=== PATIENT | male | born 1940 | race Caucasian/White ===

== ENCOUNTER → 2018-05-04 10:49 | Outpatient (CLI) | payer BC, SELFPAY ==
--- NOTE | 2018-05-04 10:49 | RAD_ITS ---
STUDY: X-RAY CHEST REASON FOR EXAM: Male, 77 years old. Shortness of breath for 3 weeks. TECHNIQUE: PA and lateral views of the chest. COMPARISON: 05/31/2016. FINDINGS: There are slightly prominent markings appears to be chronic. No new infiltrate seen. There is no demonstrated pleural abnormality. Sternal cerclage wires and vascular clips are present from a prior sternotomy and coronary artery bypass graft procedure (CABG) new since the previous exam. Normal mediastinum and jose. Normal visualized pulmonary arteries. There is atherosclerotic tortuosity of the aortic arch and descending thoracic aorta. There are degenerative changes of the visualized thoracic spine. Normal visualized ribs, clavicles, and shoulders. There is no demonstrated abnormality of the visualized soft tissue structures of the upper abdomen. RAD/Chest PA and Lateral IMPRESSION: Status post CABG. No new infiltrate is seen. Electronically Signed: Kael Wheeler MD at 11:14 EST Tel , Service support ,
[2018-05-04 11:50] LABS: Absolute Lymphocyte Count 1.49 X10^3/ul (0.83-4.51); Absolute Neutrophil Count 3.9 X10^3/uL (2.0-7.7); Basophil# 0.02 X10^3/uL; Basophil% 0.3 % (0-1); Eosinophil# 0.23 X10^3/uL; Eosinophils% 3.7 % (0-5); Hematocrit 42.7 % (40-54); Hemoglobin 14.2 g/dl (13.0-16.5); Lymphocyte # 1.49 X10^3/ul (4.0); Mean Corp Hgb Conc 33.3 g/gl (32-36); Mean Corpuscular Hgb 26.9 pg (27.0-32.0); Mean Platelet Vol. 8.9 fl (6.2-12.0); Monocyte# 0.55 X10^3/uL; Monocyte% 8.9 % (0-10); Neutrophil # 3.91 X10^3/uL (2.7-7.7); Neutrophil % 62.9 % (47-70); Platelet Count 210 K/mm3 (150-450); RBC Distribution Width CV 14.9 % (11.6-14.6); RBC Distribution Width SD 43.1 fl (35.1-43.9); Red Blood Count 5.27 M/mm3 (4.6-6.2); White Blood Count 6.2 K/mm3 (4.4-11.0)
[2018-05-04 11:53] LABS: POSITIVE COUNT NO; POSITIVE DIFFERENTIAL NO; POSITIVE MORPHOLOGY NO
[2018-05-04 12:23] LABS: Anion Gap 7 (5-15); BUN 14 mg/dL (7-18); BUN/Creat Ratio 13.2 RATIO (10-20); Calcium,Total 9.7 mg/dL (8.5-10.1); Chloride 104 mmol/L (98-107); Creatinine, Serum 1.06 mg/dL (0.70-1.30); EST Glomerular Filtration Rate 72 mL/min (>60); Est Glom Filt Rate - Afr Amer 88 mL/min (>60); Glucose 97 mg/dL (74-106); Potassium 4.2 mmol/L (3.5-5.1); Sodium Level 137 mmol/L (136-145)
[2018-05-04 12:50] LABS: BNP,B-Type NATRIURETIC PEPTIDE 7.5 pg/mL (0-100)
== END ==
PROVIDERS: Family Provider Family Medicine; PCP Family Medicine; Referring Provider Nurse Practitioner Family; Visit Provider Nurse Practitioner Family
DX: R06.09 Other forms of dyspnea (principal); I10 Essential (primary) hypertension; Z95.1 Presence of aortocoronary bypass graft
CPT/HCPCS: 36415; 71046; 80048; 83880; 85025

== ENCOUNTER 2019-06-12 16:55 | Emergency (ER) | payer MEDICARE, SELFPAY ==
[2019-06-12 16:56] VITALS: BP 152/90; PULSE 97; RESP 15; TEMP 37; O2SAT 100; BMI 29.7
--- NOTE | 2019-06-12 17:27 | ED.DCSUM_ITS ---
History of Present Illness Chief Complaint: Complaint Detail of Chief Complaint: Hematuria, spasm, pain Informant: Patient, Family Onset: Today Context: Sudden Onset Timing: Continuous, Waxes and wanes Quality: Pain Location: Prepubic Current Severity: Mild Maximum Severity: Severe Worsened by: Nothing Relieved by: Nothing Associated Symptoms: Gross hematuria Narrative: Patient is an elderly male with history of hypertension, coronary artery disease, GERD, irritable bowel syndrome, mild pulmonary fibrosis and mixed hypercholesterolemia and hypertriglyceridemia. Patient presents because of gross hematuria and abnormal CAT scan that was performed at [facility]. There is an irregular enhancing lesion approximately 8 cm in the maximum dimension along the floor of the bladder. This raises concern for neoplasm. There is also a lobular enhancement of the the left lateral bladder wall. There was no adenopathy or free fluid. Patient presents because of severe waxing and waning colicky suprapubic/pelvic pain. Does admit to night sweats. He denies weight loss. Prior similar symptoms: No Recent Illness/Hospitalization: No - Past Medical History (1) Atherosclerotic heart disease of [place] coronary artery without angina pectoris Status: Chronic Comment: CABG X 3, MOLINA to LAD, SVG to Diag, SVG to OM1 (2) Essential hypertension Status: Chronic (3) CRISS (obstructive sleep apnea) Status: Chronic (4) Pulmonary fibrosis Status: Chronic (5) Pure hypercholesterolemia Status: Chronic (6) hisotry of left lung wedge resection Status: Resolved Past Medical History - Allergies and Home Meds Allergies/Adverse Reactions: Allergies atorvastatin [From Lipitor] Allergy (Verified 06/12/19 17:00) Unknown clarithromycin [From Biaxin] Allergy (Verified 06/12/19 17:00) Unknown Penicillins Allergy (Verified 06/12/19 17:00) Unknown Primary Care Physician: Merlin Pollack [Primary Care Provider] - Prior records reviewed: Yes Surgical History: - Lives: Alone Smoking Status: Never smoker Alcohol: None Drugs: None Review of Systems General: Reports: Sweats. Denies: Chills, Fever, Malaise, Subjective, Weight loss Eyes: Denies: Visual changes - bilaterally, Blurred Vision - bilaterally, Diplopia ENT: Denies: Bilateral ear pain, Rhinorrhea, Sore throat Cardiovascular: Denies: Chest pain, Palpitations Respiratory: Denies: Dyspnea, Cough, Dyspnea on exertion Gastrointestinal: Denies: Abdominal pain, Nausea, Vomiting, Diarrhea, Melena, Hematochezia Genitourinary: Reports: Hematuria, Frequency, - - Urgency Musculoskeletal: Denies: Myalgias, Arthralgias, Neck pain, Back pain, Swelling, Extremity Pain, -, - Skin: Denies: Rash, Wounds Neurological: Denies: Headache, Weakness, Numbness Hematologic: Denies: Easy bruising, Easy bleeding Allergy: Denies: Uticaria, Swelling of the mouth Physical Exam Vital Signs/Narrative: Vital Signs Temp Pulse Resp BP Pulse Ox 06/12/19 16:56 98.6 F 97 15 152/90 H 100 Inital Vital Signs reviewed: Yes General: Well nourished, Well developed, Acute Distress Head: Normocephalic, Atraumatic Eyes: Perrl, EOMI. Negative for: Pale conjunctiva ENT: Moist mucous membranes, No rhinorrhea Neck: Supple, Nontender, No lymphadenopathy, No JVD Cardiovascular: Regular rate, Regular rhythm, No murmurs, Normal S1, Normal S2 Respiratory: No distress, CTA bilaterally, Chest nontender Abdomen: Soft, Nondistended, Normal bowel sounds, No masses - Bladder is di stended., Tender, Guarding Rectal: Deferred : - - Blood noted at the meatus. Back: Nontender, Normal Inspection Extremities: Nontender, No edema Skin: Normal color, No rash Neurological: Alert, Oriented x3, Cranial nerves II-XII grossly intact, Normal Strength, Normal Sensation Psychological: Normal affect, Normal Mood Diagnostic/Tx/Re-eval Laboratory Results 06/12/19 06/12/19 06/12/19 17:40 17:52 17:52 WBC 13.9 H RBC 5.58 Hgb 13.6 Hct 42.5 MCV 76.2 L MCH 24.4 L MCHC 32.0 RDW Std Deviation 45.0 H RDW Coeff of Anabela 16.6 H Plt Count 232 MPV 9.1 Immature Gran % (Auto) 0.400 Neut % (Auto) 83.9 H Lymph % (Auto) 9.4 L [place] % (Auto) 5.2 Eos % (Auto) 0.7 Baso % (Auto) 0.4 Absolute Neuts (auto) 11.7 H Absolute Lymphs (auto) 1.31 Nucleated RBC % 0 PT 12.7 INR 1.0 APTT 30.3 Sodium Potassium Chloride Carbon Dioxide Anion Gap BUN Creatinine Estim Creat Clear Calc Est GFR (MDRD) Af Amer Est GFR (MDRD) Non-Af BUN/Creatinine Ratio Glucose Calcium Total Bilirubin AST ALT Alkaline Phosphatase Total Protein Albumin Globulin Albumin/Globulin Ratio Urine Color Red Urine Clarity Turbid Urine pH 7.0 Ur Specific [place] 1.010 Urine Protein 500 H Urine Glucose (UA) Normal Urine Ketones 5 H Urine Occult Blood 250 H Urine Nitrite Negative Urine Bilirubin Negative Urine Urobilinogen Normal Ur Leukocyte Esterase Negative Urine RBC > 100 SEEN Urine WBC 0 SEEN Ur Squamous Epith Cells 0 SEEN Urine Bacteria 0 SEEN Urine Mucus 0 SEEN 06/12/19 17:52 WBC RBC Hgb Hct MCV MCH MCHC RDW Std Deviation RDW Coeff of Anabela Plt Count MPV Immature Gran % (Auto) Neut % (Auto) Lymph % (Auto) [place] % (Auto) Eos % (Auto) Baso % (Auto) Absolute Neuts (auto) Absolute Lymphs (auto) Nucleated RBC % PT INR APTT Sodium 136 Potassium 4.2 Chloride 101 Carbon Dioxide 22.0 Anion Gap 13 BUN 16 Creatinine 1.41 H Estim Creat Clear Calc 40.22 Est GFR (MDRD) Af Amer 63 Est GFR (MDRD) Non-Af 52 L BUN/Creatinine Ratio 11.3 Glucose 151 H Calcium 9.9 Total Bilirubin 0.40 AST 30 ALT 38 Alkaline Phosphatase 78 Total Protein 8.6 H Albumin 4.2 Globulin 4.4 H Albumin/Globulin Ratio 1.0 Urine Color Urine Clarity Urine pH Ur Specific [place] Urine Protein Urine Glucose (UA) Urine Ketones Urine Occult Blood Urine Nitrite Urine Bilirubin Urine Urobilinogen Ur Leukocyte Esterase Urine RBC Urine WBC Ur Squamous Epith Cells Urine Bacteria Urine Mucus White count is slightly elevated. H&H is normal. Differential is unremarkable. Creatinine is elevated 1.41 with a GFR 52. Daughter states he is never been told this creatinine is elevated. Total protein is slightly elevated 8.6. Albumin is normal. - Medical Decision Making Suspect patient has urinary retention secondary to blood clots. Three-way [place] was placed. Appropriate blood work was obtained. Patient and family were made aware of CAT scan results and need urologist. He has never seen a urologist. They were informed there is no urologist available for the remainder of this month at [place]. He was placed. Large clots have been removed. Patient has gross blood after multiple liters of irrigation. He still has periodic spasms. I would be suppository was ordered. Since there is no urologist available for the remainder of the month at [place] and his studies were done at [facility] and his primary care physician is affiliated with [facility] transfer line was contacted for transfer for admission to urology. ED Disposition - Plan for ED Patient: Disposition: [facility] Diagnosis: Gross hematuria, Mass of urinary bladder, Acute renal insufficiency Referrals: Merlin Pollack [Primary Care Provider] -
[2019-06-12 17:59] LABS: Bacteria 0 SEEN /hpf (None Seen); Mucous, Urine 0 SEEN /hpf (<or=2+); Squamous Epithelial Cells - UA 0 SEEN /hpf (0-5)
[2019-06-12 18:02] LABS: Color, Urine Red (Yellow); Glucose, Dipstick Normal (Normal); Ketone-Dipstick 5 mg/dl (Negative); Leukocyte Esterase-Dipstick Negative /ul (Negative); Nitrite-Dipstick Negative (Negative); Occult Blood-Urine 250 /ul (Negative); Protein-Dipstick 500 mg/dl (Negative); Urine Bilirubin Dipstick Negative (Negative); Urine Clarity Turbid (Clear); Urine Urobilinogen Normal (Normal)
[2019-06-12 18:13] LABS: Absolute Lymphocyte Count 1.31 X10^3/uL (0.83-4.51); Absolute Neutrophil Count 11.7 X10^3/uL (2.0-7.7); Basophil# 0.05 X10^3/uL; Basophil% 0.4 % (0-1); Eosinophils% 0.7 % (0-5); Hematocrit 42.5 % (40-54); Hemoglobin 13.6 g/dL (13.0-16.5); Lymphocyte # 1.31 X10^3/ul (4.0); Lymphocyte % 9.4 % (19-41); Mean Corpuscular Hgb 24.4 pg (27.0-32.0); Mean Corpuscular Volume 76.2 fL (80-94); Mean Platelet Vol. 9.1 fl (6.2-12.0); Monocyte# 0.72 X10^3/uL; Monocyte% 5.2 % (0-10); NRBC Flagged by Analyzer 0 % (0-5); Neutrophil # 11.68 X10^3/uL (2.7-7.7); Neutrophil % 83.9 % (47-70); Platelet Count 232 K/mm3 (150-450); RBC Distribution Width CV 16.6 % (11.6-14.6); Red Blood Count 5.58 M/mm3 (4.6-6.2); White Blood Count 13.9 K/mm3 (4.4-11.0)
[2019-06-12 18:18] LABS: AST(SGOT) 30 U/L (15-37); Alanine Aminotransfer ALT/SGPT 38 U/L (16-61); Albumin, Serum 4.2 g/dL (3.2-5.0); Alkaline Phosphatase 78 U/L (45-117); Anion Gap 13 (5-15); BUN 16 mg/dL (7-18); BUN/Creat Ratio 11.3 RATIO (10-20); Calcium,Total 9.9 mg/dL (8.5-10.1); Chloride 101 mmol/L (98-107); Creatinine, Serum 1.41 mg/dL (0.70-1.30); EST Glomerular Filtration Rate 52 mL/min (>60); Est Glom Filt Rate - Afr Amer 63 mL/min (>60); Estimated Creatinine Clearance 40.22 ml/min; Globulin 4.4 g/dL (2.2-4.2); Glucose 151 mg/dL (74-106); Potassium 4.2 mmol/L (3.5-5.1); Protein, Total 8.6 g/dL (6.4-8.2); Prothrombin Time (Protime)PT. 12.7 SECONDS (11.7-14.9); Sodium Level 136 mmol/L (136-145)
[2019-06-12 18:19] LABS: Partial Thromboplast Time 30.3 Seconds (24.1-36.2)
[2019-06-12 18:32] LABS: Red Blood Cells-Urine > 100 SEEN /hpf (0-5); White Blood Cells 0 SEEN /hpf (0-5)
[2019-06-12 18:33] VITALS: BP 166/102; PULSE 97; RESP 29; O2SAT 100
[2019-06-12 19:12] VITALS: BP 171/92; PULSE 94; RESP 21; O2SAT 99
[2019-06-12 19:38] VITALS: BP 153/86; PULSE 96; RESP 18; O2SAT 98
[2019-06-12 20:02] VITALS: BP 153/86; PULSE 96; RESP 18; O2SAT 98
== END 2019-06-12 20:06 | disposition short-term general hospital (02) ==
PROVIDERS: Emergency Provider Emergency Medicine; Family Provider Family Medicine; PCP Family Medicine
DX: R31.0 Gross hematuria (principal); N32.89 Other specified disorders of bladder; N28.9 Disorder of kidney and ureter, unspecified; I10 Essential (primary) hypertension; I25.10 Atherosclerotic heart disease of native coronary artery without angina pectoris; K21.9 Gastro-esophageal reflux disease without esophagitis; K58.9 Irritable bowel syndrome, unspecified; J84.10 Pulmonary fibrosis, unspecified; E78.1 Pure hyperglyceridemia; E78.00 Pure hypercholesterolemia, unspecified; G47.33 Obstructive sleep apnea (adult) (pediatric); Z95.1 Presence of aortocoronary bypass graft; Z79.82 Long term (current) use of aspirin; Z79.899 Other long term (current) drug therapy
CPT/HCPCS: 51702; 80053; 81001; 85025; 85610; 85730; 99285; A4216

== ENCOUNTER → 2020-01-03 06:01 | Outpatient (CLI) | payer MEDICARE, SELFPAY ==
[2019-08-16 14:01] VITALS: BMI 30.1
--- NOTE | 2020-01-03 12:48 | STRESSREP_ITS ---
Stress Test Report Date: 01-03-2020 Procedure: Pharmacologic stress nuclear imaging study Indications: Chest pain; CAD; CABG Consent: Per the patient Procedure: The patient underwent pharmacologic (Regadenoson) evaluation with a peak heart rate of 100 beats per minute (69 %predicted maximal heart rate) and a peak blood pressure of 148/78 mmHg. The baseline ECG demonstrated normal sinus rhythm; low voltage QRS. The peak pharmacologic ECG demonstrated obvious ECG changes. There were no cardiac dysrhythmias pretest, during pharmacologic infusion, or recovery. There was no complaint of chest discomfort during pharmacologic infusion or recovery. The examination was discontinued secondary to completion of protocol. Impression: 1. Pharmacologic (Regadenoson) evaluation 2. Peak pharmacologic ECG with no obvious ECG changes. 3. There were no cardiac dysrhythmias pretest, during pharmacologic infusion, or recovery. 4. Nuclear images pending Myocardial perfusion imaging study: Technique: The patient was injected with 11.9 millicuries of technetium 99m Cardiolite and subsequently rest SPECT Cardiolite nuclear imaging was obtained in the horizontal long, vertical long, and short axis views. The patient underwent pharmacologic (Regadenoson) evaluation with a peak heart rate of 100 beats per minute (69 % percent predicted maximal heart rate) and a peak blood pressure of 148/78 mmHg. The patient was injected with 33.3 millicuries of technetium 99m Cardiolite and subsequently stress SPECT Cardiolite nuclear imaging was obtained in the horizontal long, vertical long, and short axis views. A gated Cardiolite study at peak stress was obtained. Interpretation: Rest and stress SPECT Cardiolite nuclear imaging status post realignment, normalization, and attenuation correction demonstrate at rest a small area of subtle diminished tracer uptake near the apical segments which appears to normalize following stress.. There is end systolic thickening and brightening. The gated Cardiolite study demonstrates myocardial thickening and inward wall motion. The reported LVEF is 70 %. Impression: 1. Rest and stress myocardial nuclear imaging demonstrate myocardial perfusion change appearing compatible shifting soft tissue attenuation/artifact being more prominent at rest as opposed to stress with no myocardial perfusion changes considered diagnostic for associated stress-induced myocardial ischemia. 2. The gated Cardiolite study reports an LVEF of 70 %. This note was generated with [email or web address] software. It may contain incorrect words, spelling, and punctuation that were not noted in checking the note before signing.
== END ==
PROVIDERS: PCP Family Medicine; Referring Provider Physician Assistant Medical; Visit Provider Physician Assistant Medical
DX: R07.9 Chest pain, unspecified (principal)
CPT/HCPCS: 78452; 93017; A9500; A4216; J2785

== ENCOUNTER 2021-02-19 13:24 | Observation (INO) | payer MEDICARE, SELFPAY ==
[2021-02-19] VITALS (13 sets, daily range): BP systolic 127–164; BP diastolic 75–92; PULSE 79–94; RESP 16–27; TEMP 36.6–37.8; O2SAT 91–99; BMI 30.7; BMI 30.4
--- NOTE | 2021-02-19 14:20 | EKG12_ITS ---
Test Reason : SOB Blood Pressure : / mmHG Vent. Rate : 078 BPM Atrial Rate : 078 BPM P-R Int : 156 ms QRS Dur : 084 ms QT Int : 374 ms P-R-T Axes : 020 -13 007 degrees QTc Int : 426 ms Normal sinus rhythm Normal ECG Confirmed by ROSA TREJO, VLAD ([id number]), greeting card editor MARKELL BETTS ([id number]) on 02/22/2021 12:48:03 PM Referred By: DR TOLENTINO Confirmed By:VLAD LEE MD
--- NOTE | 2021-02-19 14:27 | ED.VIS.DYS ---
HPI History of Present Illness Chief Complaint: Shortness of Breath Informant: patient Onset/Context/Timing Onset: Days Context: gradual Timing: Continuous Quality: Positive for Dyspnea on exertion Current Severity: Mild Maximum Severity: Mild Worsened by: Exertion Relieved by: Nothing Associated Symptoms cough and white sputum Chest Pain: Positive for None Narrative Narrative: 80-year-old male history of pulmonary fibrosis but not on home O2. His daughter is a respiratory therapist here to the hospital. He has had a prior triple-vessel CABG and recent diagnosis of bladder cancer. States has been short of breath last several days with a cough of white phlegm. No fever. No chest pain. No hemoptysis. His pulse ox at home was 86% on room air at home. Patient did get a Covid vaccination x2. PE Risk Factors: Positive for Recent surgery; Negative for Cancer, OCP + Smoking + > 35, Prior DVT or PE, Recent immobilization and Recent travel Prior similar symptoms: No Recent Illness/Hospitalization: No PFSH PFSH Medical History Atherosclerotic heart disease of [place] coronary artery without angina pectoris BiPAP (biphasic positive airway pressure) dependence Bladder cancer Essential hypertension Fatigue Hyperlipidemia Hypertension Pulmonary fibrosis Pure hypercholesterolemia Sleep apnea Home Medications aspirin 81 mg PO DAILY 06/06/16 [History Last Taken 06/15/16] omeprazole 20 mg PO DAILY 06/06/16 [History Last Taken 06/15/16] nitroglycerin 0.4 mg sublingual tablet 0.4 mg SUBLINGUAL Q5M PRN #25 tab 10/11/17 [Rx Last Taken Unknown] rosuvastatin 20 mg tablet 10 mg PO QODAY tab 10/11/17 [History Last Taken Unknown] amlodipine 5 mg tablet 5 mg PO QDAY #90 tab 08/13/20 [Rx Last Taken Unknown] metoprolol tartrate 25 mg tablet 25 mg PO BID tab 08/13/20 [History Last Taken Unknown] montelukast 10 mg tablet 10 mg PO QHS 08/13/20 [History Last Taken Unknown] Allergy/AdvReac Type Severity Reaction Status Date / Time atorvastatin [From Lipitor] Allergy Unknown Verified 02/19/21 13:26 clarithromycin [From Biaxin] Allergy Unknown Verified 02/19/21 13:26 Penicillins Allergy Unknown Verified 02/19/21 13:26 Family History Mother Colon cancer Sister Colon cancer Father CAD (coronary artery disease) Diabetes COPD (chronic obstructive pulmonary disease) Hypertension Sudden cardiac Brother CAD (coronary artery disease) Surgical History 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) History of gastrectomy History of tonsillectomy Social History Smoking Status: Former smoker alcohol intake: never substance use type: does not use caffeine: Yes Type: coffee Number of servings: 1 what type of physical activity do you participate in: none seatbelt use: always do you feel safe at home: Yes ROS ROS ED ROS Narrative Cough and shortness of breath. Review of Systems ROS Unobtainable: Denies due to encephalopathy Constitutional Constitutional ED: Denies chills or fever(s) Eyes Eyes: Denies change in vision ENT ENT ED: Denies ear pain or sore throat Cardiovascular Cardiovascular: Denies chest pain or palpitations Respiratory/Chest Respiratory/Chest: Reports cough, dyspnea, dyspnea on exertion and sputum Gastrointestinal Gastrointestinal: Denies abdominal pain, diarrhea, nausea or vomiting Genitourinary Genitourinary ED: Denies dysuria Musculoskeletal Musculoskeletal: Denies myalgias Integumentary Denies rash Neurologic Neurologic: Denies headache(s) Psychiatric Psychiatric: Denies depression Endocrine Endocrinology: Denies polyuria Hematologic/Lymphatic Hematologic/Lymphatic: Denies easy bruising Allergic/Immunologic Allergic/Immunologic ED: Denies urticaria EXAM Physical Exam Narrative Exam Narrative: Older male no distress on oxygen his sats in the mid 90s. H EENT exam unremarkable. Neck nontender no JVD no lymphadenopathy. Lungs few scattered crackles. Daughter states that is baseline. Heart regular rate and rhythm no murmur rate about 80. Abdomen soft nontender. Normal bowel sounds no peritoneal signs. Extremities moves all 4. Calves nontender without edema or cords. Neurologically awake alert with no focal motor deficits. Const Vital Signs: 02/19/21 13:25 02/19/21 14:07 02/19/21 16:21 Temperature 97.8 F Temperature Source Temporal Pulse Rate 85 79 79 Respiratory Rate 22 H 27 H 23 H Respiratory Effort Short of Breath Respiratory Depth Shallow Respiratory Pattern Irregular Blood Pressure 164/89 H 134/75 H 141/81 H Blood Pressure Mean 114 94 101 Pulse Ox 95 96 94 Oxygen Delivery Method Room Air Nasal Cannula Nasal Cannula Oxygen Flow Rate (L/min) 2 2 Positive well nourished and well developed; Negative for obese, cachectic, contractures or unkempt General Appearance ED: well developed and NAD; Negative for unkempt, cachectic or contractures Nutritional Appearance: Negative for cachectic or obese HEENT Reports moist mucous membranes atraumatic; Negative for trauma or tenderness Eyes PERRL and EOMs intact bilaterally Neck no lymphadenopathy, supple, no meningeal signs and no JVD General: Negative for tenderness Resp normal respiratory effort and No clear to auscultation bilaterally Auscultation: rales Cardio regular rate, regular rhythm, S1 normal heart sound, S2 normal heart sound and no murmurs GI non-tender, non-distended and no masses Auscultation: normoactive bowel sounds Palpation: soft; Negative for tender, guarding or rebound tenderness present Back/Spine no CVA tenderness and normal to inspection General Back: Negative for CVA tenderness or tenderness Extremity normal to inspection General Extremety ED: Negative for edema or tenderness General Extremity: Negative for edema Neuro oriented x3 and CN's II-XII intact bilaterally Sensorium / Orientation: alert, oriented to person, oriented to place, oriented to time and orientation impaired; Negative for confused, lethargic or stuporous Motor Exam: strength 5/5 throughout Psych Appearance: Negative for unkempt Skin no wounds Lesions: no lesions Rashes: no rashes MDM MDM MDM Narrative Medical decision making narrative: Older male hypoxic with a cough and history of pulmonary fibrosis. Rule out pneumonia versus Covid versus other etiologies. Repeat exam is doing well at 4:56 PM. He and his daughter and I discussed his test results. I am obtaining a CTA of his chest in light that we will have a good diagnosis that is causing his hypoxia. I am not overwhelmed at that this is congestive heart failure and a BNP pending. He will be checked out to the oncoming physician and he will check the CTA and BNP results and make a disposition. Lab Data Attestation: I reviewed the patient's lab results. Lab results narrative: CBC shows a white count 6.5. Hemoglobin 12.7. Electrolytes unremarkable gap of 5. Creatinine of 1. Troponin IV. Chest x-ray chronic changes. Radiologist's reading is CHF this could all be secondary to his pulmonary fibrosis are not so this is CHF. Labs: Laboratory Results - last 24 hr 02/19/21 02/19/21 14:59 14:59 WBC 6.5 RBC 4.66 Hgb 12.7 L Hct 39.6 L MCV 85.0 MCH 27.3 MCHC 32.1 RDW Std Deviation 42.4 RDW Coeff of Anabela 13.6 Plt Count 244 MPV 8.9 Immature Gran % (Auto) 0.300 Neut % (Auto) 68.3 Lymph % (Auto) 17.4 L [place] % (Auto) 8.6 Eos % (Auto) 5.1 H Baso % (Auto) 0.3 Absolute Neuts (auto) 4.4 Absolute Lymphs (auto) 1.13 Nucleated RBC % 0 Differential Comment SCANNED Sodium 134 L Potassium 4.2 Chloride 102 Carbon Dioxide 27.0 Anion Gap 5 BUN 13 Creatinine 1.08 Estim Creat Clear Calc 47.20 Est GFR (MDRD) Af Amer 85 Est GFR (MDRD) Non-Af 70 BUN/Creatinine Ratio 12.0 Glucose 105 Calcium 9.6 Troponin I High Sens 4 Radiography Chest X-Ray - ED: 1 View, Read by ED Physician, Read by Radiologist, Heart, Lungs, Mediastinum, Bony Structures, No Acute Disease and Chronic Changes Diagnostic Testing: Radiology Impression Chest X-Ray 02/19/21 14:28 IMPRESSION: Findings suggestive of a mild degree of CHF superimposed on scarring. Electronically Signed: Fahad Majano MD at 15:17 EDT , Service support , Portable 1 view chest x-ray entered by myself and radiologist. This may all be chronic changes of pulmonary fibrosis personally are not convinced as of yet that this is CHF that the radiologist read it as. Rhythm Strip Rhythm Strip: Sinus Rhythm Rate: 78 Ectopy: None EKG Initial EKG: Attestation: I personally reviewed and interpreted this EKG as follows: Interpretation: Sinus Rhythm Comments: Normal sinus rhythm rate of 79 no acute signs of DC nor ischemia. Discharge Plan Dx/Rx/DC Orders Clinical Impression: Acute dyspnea, Pulmonary fibrosis, Hypoxia Disposition Disposition: Acute Care Hospital [facility]
--- NOTE | 2021-02-19 14:28 | RAD_ITS ---
STUDY: X-RAY CHEST REASON FOR EXAM: Male, 80 years old. Dyspnea TECHNIQUE: Single AP portable view of the chest. COMPARISON: Comparison is made with prior study dated 05/04/2018. FINDINGS: EKG electrodes are seen. Mild degree of increased markings in both lungs with areas of confluence in the upper and lower lobes. This is suggestive of a mild degree of CHF superimposed on scarring. There is no demonstrated pleural abnormality. Sternal cerclage wires and vascular clips are present from a prior sternotomy and coronary artery bypass graft procedure (CABG). Normal mediastinum and jose. Normal visualized pulmonary arteries. Normal visualized aortic arch and descending thoracic aorta. There are diffuse degenerative changes of the visualized thoracic spine. Normal visualized ribs, clavicles, and shoulders. There is no demonstrated abnormality of the visualized soft tissue structures of the upper abdomen. RAD/Chest 1 View (Portable) IMPRESSION: Findings suggestive of a mild degree of CHF superimposed on scarring. Electronically Signed: Fahad Majano MD at 15:17 EDT , Service support ,
[2021-02-19 15:19] LABS: Absolute Lymphocyte Count 1.13 X10^3/uL (0.83-4.51); Absolute Neutrophil Count 4.4 X10^3/uL (2.0-7.7); Basophil# 0.02 X10^3/uL; Basophil% 0.3 % (0-1); Eosinophil# 0.33 X10^3/uL; Eosinophils% 5.1 % (0-5); Hematocrit 39.6 % (40-54); Hemoglobin 12.7 g/dL (13.0-16.5); Lymphocyte # 1.13 X10^3/ul (0.83-4.51); Lymphocyte % 17.4 % (19-41); Mean Corp Hgb Conc 32.1 g/dL (32-36); Mean Corpuscular Hgb 27.3 pg (27.0-32.0); Mean Platelet Vol. 8.9 fl (6.2-12.0); Monocyte# 0.56 X10^3/uL; Monocyte% 8.6 % (0-10); NRBC Flagged by Analyzer 0 % (0-5); Neutrophil # 4.44 X10^3/uL (2.7-7.7); Neutrophil % 68.3 % (47-70); POSITIVE COUNT YES; Platelet Count 244 K/mm3 (150-450); RBC Distribution Width CV 13.6 % (11.6-14.6); RBC Distribution Width SD 42.4 fl (35.1-43.9); Red Blood Count 4.66 M/mm3 (4.6-6.2); White Blood Count 6.5 K/mm3 (4.4-11.0)
[2021-02-19 15:40] LABS: Anion Gap 5 (5-15); BUN 13 mg/dL (7-18); Calcium,Total 9.6 mg/dL (8.5-10.1); Chloride 102 mmol/L (98-107); Creatinine, Serum 1.08 mg/dL (0.70-1.30); EST Glomerular Filtration Rate 70 mL/min (>60); Est Glom Filt Rate - Afr Amer 85 mL/min (>60); Glucose 105 mg/dL (74-106); Potassium 4.2 mmol/L (3.5-5.1); Sodium Level 134 mmol/L (136-145); Troponin-I HS 4 pg/mL (3.0-78.0)
[2021-02-19 15:45] LABS: Differential Comment SCANNED; Differential Indicated SCAN CRITERIA MET
--- NOTE | 2021-02-19 16:40 | CT_ITS ---
STUDY: CTA CHEST REASON FOR EXAM: Male, 80 years old. hypoxia RADIATION DOSAGE (If Supplied By Facility): CTDIvol = ( 12.83 ) mGy, DLP = ( 430.26 ) mGycm TECHNIQUE: The examination was performed with the intravenous administration of IV 100mL [id number]-370. Post-processing of the angiographic images was performed, with multiplanar reformation and 3D reconstruction. Individualized dose optimization techniques were used for this CT. COMPARISON: None. FINDINGS: Normal enhancement of the main pulmonary artery and right and left pulmonary arteries. Normal enhancement of the bilateral peripheral pulmonary arteries. There is no demonstrated pulmonary embolism. Normal thoracic aorta and visualized great vessels. There is no demonstrated aortic dissection. Normal heart and pericardium. There are calcifications of the coronary arteries. Normal mediastinum. Normal hilar regions. Normal visualized trachea and bronchi. The lungs are hyper expanded, with flattening of the hemidiaphragms. Widespread severe findings fibrotic changes throughout both lungs including end-stage honeycombing in the lung bases. Normal pleura. No effusions. Normal chest wall structures. There are degenerative changes of thoracic spine. Normal visualized upper abdomen. CT/CTA Chest W/WO Contrast IMPRESSION: Normal CTA chest examination, without a demonstrated pulmonary embolism or arterial dissection. Severe fibrotic COPD and no definite acute chest disease. Electronically Signed: Andrés Marroquin MD at 17:42 EDT , Service support ,
--- NOTE | 2021-02-19 17:19 | ED.RN ---
no sirs. sepsis screen cancel per ed dr. long dumont. [id number]
[2021-02-19 17:30] LABS: BNP,B-Type NATRIURETIC PEPTIDE 9.8 pg/mL (0-100)
--- NOTE | 2021-02-19 19:33 | PCM.HP.STD ---
HPI - General General Date of Admission: 02/19/21 Date of Service: 02/19/21 Chief Complaint: Shortness of breath times several days HPI Narrative TOYA ROMERO, is a 80 M who presents to the emergency room at [facility] with a chief complaint of shortness of breath-chiefly on exertion times several days. Patient has a history of pulmonary fibrosis but is not on oxygen at home. 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 Patient does have obstructive sleep apnea and history of coronary artery disease. CT of the chest was performed in the ER which showed changes consistent with pulmonary fibrosis, patient had a COVID-19 test that was negative. Patient's white blood cell count was normal, he was afebrile. Patient's pulse ox on room air was in the 90s, when he ambulated on room air, his pulse ox went down to 86%. Patient denies any fever or chills at home, he denies any change in his sputum-his sputum is white. Patient will be placed in observation status for hypoxia secondary to pulmonary fibrosis, I will place him on oral steroids and have pulmonary medicine see him in consultation. He will need to be set up for oxygen at home. [facility] Medical History Atherosclerotic heart disease of [place] coronary artery without angina pectoris BiPAP (biphasic positive airway pressure) dependence Bladder cancer Essential hypertension Fatigue Hyperlipidemia Hypertension Pulmonary fibrosis Pure hypercholesterolemia Sleep apnea Home Medications aspirin 81 mg PO DAILY 06/06/16 [History Last Taken 02/19/21] omeprazole 20 mg PO DAILY 06/06/16 [History Last Taken 02/19/21] nitroglycerin 0.4 mg sublingual tablet 0.4 mg SUBLINGUAL Q5M PRN #25 tab 10/11/17 [Rx Last Taken Unknown] metoprolol tartrate 25 mg tablet 25 mg PO BID tab 08/13/20 [History Last Taken 02/19/21] montelukast 10 mg tablet 10 mg PO QHS 08/13/20 [History Last Taken 02/18/21] amlodipine 5 mg PO DAILY 02/19/21 [History Last Taken 02/19/21] cefuroxime axetil 500 mg PO BID 02/19/21 [History Last Taken 02/19/21] docusate sodium 200 mg PO DAILY 02/19/21 [History Last Taken 02/18/21] rosuvastatin 10 mg PO QODAY 02/19/21 [History Last Taken 02/17/21] Allergy/AdvReac Type Severity Reaction Status Date / Time atorvastatin [From Lipitor] Allergy Unknown Verified 02/19/21 13:26 clarithromycin [From Biaxin] Allergy Unknown Verified 02/19/21 13:26 Penicillins Allergy Unknown Verified 02/19/21 13:26 Family History Mother Colon cancer Sister Colon cancer Father CAD (coronary artery disease) Diabetes COPD (chronic obstructive pulmonary disease) Hypertension Sudden cardiac Brother CAD (coronary artery disease) Surgical History 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) History of gastrectomy History of tonsillectomy Social History Smoking Status: Former smoker alcohol intake: never substance use type: does not use caffeine: Yes Type: coffee Number of servings: 1 what type of physical activity do you participate in: none seatbelt use: always do you feel safe at home: Yes ROS Constitutional Constitutional: Denies anorexia, change in weight, chills, fever(s), night sweats or weakness Eyes Eyes: Denies blurry vision, change in eye color, change in vision, discharge from eye(s) or eye pain ENT HEENT: Denies abnormal hearing, dysphagia or ear pain Cardiovascular Cardiovascular: Reports dyspnea on exertion; Denies chest pain, claudication, edema, lightheadedness, orthopnea or palpitations Respiratory/Chest Respiratory/Chest: Reports dyspnea; Denies cough, excessive phlegm production, hemoptysis, shortness of breath at rest or shortness of breath with exertion Gastrointestinal Gastrointestinal: Denies abdominal pain, coffee ground emesis, constipation, diarrhea, hematemesis, hematochezia, melena, nausea or vomiting Genitourinary Genitourinary: Denies burning urination, dysuria, hematuria, urinary frequency, urinary hesitancy, urinary incontinence or urinary urgency Musculoskeletal Musculoskeletal: Denies back pain, joint pain, joint stiffness, joint swelling, myalgias or neck pain Neurologic Neurologic: Denies abnormal gait, abnormal speech, dizziness, focal weakness, headache(s), loss of vision, numbness, other visual disturbances, paresthesias, syncope or tingling Psychiatric Psychiatric: Denies anxiety, cognitive impairment, depression, irritability, mood swings or suicidal ideation Endocrine Endocrinology: Denies change in body appearance, cold intolerance, excessive sweating, heat intolerance, polydipsia or polyuria Hematologic/Lymphatic Hematologic/Lymphatic: Denies none, anemia, easy bleeding, easy bruising or lymphadenopathy Allergic/Immunologic Allergic/Immunologic: Denies rhinitis, urticaria, eczemia or asthma Vital Signs Vital Signs Vital Signs: 02/19/21 13:25 02/19/21 14:07 02/19/21 16:21 Temperature 97.8 F Temperature Source Temporal Pulse Rate 85 79 79 Respiratory Rate 22 H 27 H 23 H Respiratory Effort Short of Breath Respiratory Depth Shallow Respiratory Pattern Irregular Blood Pressure 164/89 H 134/75 H 141/81 H Blood Pressure Mean 114 94 101 Pulse Ox 95 96 94 Oxygen Delivery Method Room Air Nasal Cannula Nasal Cannula Oxygen Flow Rate (L/min) 2 2 02/19/21 17:07 02/19/21 18:07 02/19/21 19:10 Temperature Temperature Source Pulse Rate 84 91 94 Respiratory Rate 16 27 H 25 H Respiratory Effort Respiratory Depth Respiratory Pattern Blood Pressure 147/92 H 139/81 H 139/81 H Blood Pressure Mean 110 100 100 Pulse Ox 99 96 96 Oxygen Delivery Method Room Air Room Air Oxygen Flow Rate (L/min) 2 Weight Weight: 81.1 kg Body Mass Index (BMI) 30.7 Physical Exam Const alert, oriented x3, no apparent distress and healthy appearing General Appearance: cooperative, well kempt and well developed Orientation / Consciousness: awake, oriented to person, oriented to place and oriented to time HEENT normocephalic, head/scalp atraumatic, hearing grossly normal bilaterally and moist oral mucous membranes Eyes PERRL, EOMs intact bilaterally and conjunctivae normal Neck nuchal rigidity, supple, no JVD, thyroid normal and no carotid bruits General: trachea midline Resp normal respiratory effort, no retractions and no use of accessory muscles Resp Narrative: There are bilateral inspiratory crackles/rales over all lung [place] bilaterally Auscultation: crackles bilateral and diffuse Cardio regular rate, regular rhythm, S1 normal heart sound, S2 normal heart sound, no murmurs, no rub, no gallops and no clicks GI normal to inspection, nondistended, normoactive bowel sounds, soft to palpation, non-tender and non-distended Extremity no clubbing, cyanosis or edema Skin no rashes or lesions noted, no wounds and skin turgor normal General Skin Exam: no breakdown Neuro oriented x3, CN's II-XII intact bilaterally, no focal motor deficits and no sensory deficits noted Sensorium / Orientation: awake and alert Speech: speech normal Motor Exam: strength 5/5 throughout Psych thought process normal and affect normal Results Lab / Micro Data Result Diagrams: 02/19/21 14:59 02/19/21 14:59 Labs: Laboratory Results - last 24 hr 02/19/21 14:59: WBC 6.5, RBC 4.66, Hgb 12.7 L, Hct 39.6 L, MCV 85.0, MCH 27.3, MCHC 32.1, RDW Std Deviation 42.4, RDW Coeff of Anabela 13.6, Plt Count 244, MPV 8.9, Immature Gran % (Auto) 0.300, Neut % (Auto) 68.3, Lymph % (Auto) 17.4 L, [place] % (Auto) 8.6, Eos % (Auto) 5.1 H, Baso % (Auto) 0.3, Absolute Neuts (auto) 4.4, Absolute Lymphs (auto) 1.13, Nucleated RBC % 0, Differential Comment SCANNED 02/19/21 14:59: Sodium 134 L, Potassium 4.2, Chloride 102, Carbon Dioxide 27.0, Anion Gap 5, BUN 13, Creatinine 1.08, Estim Creat Clear Calc 47.20, Est GFR (MDRD) Af Amer 85, Est GFR (MDRD) Non-Af 70, BUN/Creatinine Ratio 12.0, Glucose 105, Calcium 9.6, Troponin I High Sens 4 02/19/21 14:59: B-Natriuretic Peptide 9.8 Micro: Microbiology 02/19/21 14:59 Nasal Secretion SARS-CoV-2 Antigen (Rapid) - Final Rhythm Strip Rhythm Strip: Sinus Rhythm Rate: 78 Ectopy: None Radiology Impression Chest X-Ray 02/19/21 14:28 IMPRESSION: Findings suggestive of a mild degree of CHF superimposed on scarring. Electronically Signed: Fahad Majano MD at 15:17 EDT , Service support , Chest CTA 02/19/21 16:40 IMPRESSION: Normal CTA chest examination, without a demonstrated pulmonary embolism or arterial dissection. Severe fibrotic COPD and no definite acute chest disease. Electronically Signed: Andrés Marroquin MD at 17:42 EDT , Service support , Assessment & Plan Assessment/Plan (1) Hypoxia: PLAN: 1. Hypoxia-secondary to advanced pulmonary fibrosis, I explained to the patient that he would need to be set up for home oxygen and then we would place him in observation status on MedSurg, I have decided to place him on prednisone and have pulmonary medicine see him, I do not feel he needs aerosol treatments there is no wheezing, I do not think he needs antibiotics-he is not running a temperature and his white count is normal he has no change in his sputum color or consistency. 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 #5 essential hypertension #6 hyperlipidemia Charges/Coding Visit Charges OBSV E&M: 89767 Initial observation care L3
--- NOTE | 2021-02-19 19:50 | ECHOD_ITS ---
Reason For Study: Dyspnea/SOB Procedure This was a 2D Doppler, Color Flow transthoracic echocardiogram. Exam performed portable in patient room. Left Ventricle Normal LV size. Left ventricular systolic function is normal. The estimated ejection fraction is 60 %. Stage 1 diastolic dysfunction. No regional wall motion abnormalities noted. Right Ventricle Normal RV size. Normal systolic function. Atria Normal left atrium. Normal right atrium. Mitral Valve Normal mitral valve. Tricuspid Valve Normal tricuspid valve. Aortic Valve Trisinus/trileaflet aortic valve. Mild focal aortic valve calcification. Pulmonic Valve Normal pulmonic valve. Great Vessels Normal aortic root. Pericardium/Pleural No pericardial effusion. MMode/2D Measurements & Calculations LVIDd: 4.3 cm IVSd: 1.1 cm Ao root diam: 3.6 cm LVIDs: 2.7 cm LVPWd: 1.3 cm RVDd: 3.8 cm FS: 38.2 % LAV(MOD-bp): 26.1 ml LVAd ap4: 19.8 cm2 SV(MOD-sp4): 30.8 ml LAV(MOD-bp) Indexed: 14.1 ml/m2 LVLd ap4: 7.3 cm LAV(MOD-sp2): 27.3 ml EDV(MOD-sp4): 45.7 ml LAV(MOD-sp4): 23.8 ml EDV(sp4-el): 46.0 ml LVAs ap4: 10.2 cm2 LVLs ap4: 6.3 cm ESV(MOD-sp4): 14.9 ml ESV(sp4-el): 14.0 ml EF(MOD-sp4): 67.4 % EF(sp4-el): 69.5 % SV(sp4-el): 32.0 ml LA A4 area: 11.3 cm2 LA dimension(2D): 4.1 cm RA A4 area: 9.7 cm2 Doppler Measurements & Calculations MV E max tommy: 59.3 cm/sec Lat Peak E' Tommy: 5.9 cm/sec Med Peak E' Tommy: 5.6 cm/sec MV A max tommy: 72.5 cm/sec E/E' lat: 10.1 E/E' med: 10.6 MV E/A: 0.82 Ao V2 max: 130.7 cm/sec LV V1 max: 108.7 cm/sec PA V2 max: 86.8 cm/sec Ao max P.8 mmHg LV V1 max P.7 mmHg Ao V2 mean: 88.1 cm/sec Ao mean P.4 mmHg Ao V2 VTI: 22.6 cm ECHO/Echo Complete Interpretation Summary Normal LV size. Left ventricular systolic function is normal. The estimated ejection fraction is 60 %. Stage 1 diastolic dysfunction. Structurally normal valves. Ordering Physician: Clint Grossman Referring Physician: Merlin Pollack Performed By: Glenis Nix, TEMITOPE, RVT
[2021-02-19] MEDS: Heparin Injection (Vial) 5,000 UNIT/ML VIAL 5000 UNIT SC (20:59)
[2021-02-19] MEDS: Acetaminophen 325 MG Tablet 650 MG PO (20:59)
[2021-02-19] MEDS: Calcium Carbonate 500 MG Tablet 1000 MG PO (20:59)
[2021-02-19] MEDS: predniSONE 20 MG Tablet 60 MG PO (20:59)
[2021-02-19] MEDS: Metoprolol Tartrate 25 MG Tablet PO (20:59)
[2021-02-20] VITALS (10 sets, daily range): BP systolic 107–151; BP diastolic 72–92; PULSE 61–88; RESP 16–19; TEMP 36.6–37.1; O2SAT 86–98
[2021-02-20] MEDS: Calcium Carbonate 500 MG Tablet 1000 MG PO (05:31)
--- NOTE | 2021-02-20 07:46 | PCM.PN.HOSP ---
Subjective Subjective Patient has chronic pulmonary fibrosis at least for last 3 years. Patient has not recent follow-up in pulmonary clinic. Low-grade fever T-max 100.1 Fahrenheit. Patient denies change in severity of cough, sputum production but has worsening of shortness of breath the last 1 week with dyspnea on mild exertion Objective Data Objective Data Vital Signs: Vital Signs Temp Pulse Resp BP Pulse Ox 97.9 F 79 19 H 107/92 H 94 02/20/21 02:30 02/20/21 03:45 02/20/21 03:45 02/20/21 02:30 02/20/21 03:45 Oxygen Flow Rate (L/min) 2 Oxygen Delivery Method Room Air Weight: 177 lb 11.081 oz Body Mass Index (BMI) 30.4 Intake & Output: Intake and Output for Last 24 Hours 02/18/21 02/19/21 02/20/21 23:59 23:59 23:59 Intake Total 120 / 120 Output Total 300 / 300 Balance -300 / -300 120 / 120 Lab / Micro Data Result Diagrams: 02/19/21 14:59 02/19/21 14:59 Labs: Laboratory Results - last 24 hr 02/19/21 14:59: WBC 6.5, RBC 4.66, Hgb 12.7 L, Hct 39.6 L, MCV 85.0, MCH 27.3, MCHC 32.1, RDW Std Deviation 42.4, RDW Coeff of Anabela 13.6, Plt Count 244, MPV 8.9, Immature Gran % (Auto) 0.300, Neut % (Auto) 68.3, Lymph % (Auto) 17.4 L, [place] % (Auto) 8.6, Eos % (Auto) 5.1 H, Baso % (Auto) 0.3, Absolute Neuts (auto) 4.4, Absolute Lymphs (auto) 1.13, Nucleated RBC % 0, Differential Comment SCANNED 02/19/21 14:59: Sodium 134 L, Potassium 4.2, Chloride 102, Carbon Dioxide 27.0, Anion Gap 5, BUN 13, Creatinine 1.08, Estim Creat Clear Calc 47.20, Est GFR (MDRD) Af Amer 85, Est GFR (MDRD) Non-Af 70, BUN/Creatinine Ratio 12.0, Glucose 105, Calcium 9.6, Troponin I High Sens 4 02/19/21 14:59: B-Natriuretic Peptide 9.8 Micro: Microbiology 02/19/21 14:59 Nasal Secretion SARS-CoV-2 Antigen (Rapid) - Final Radiography Diagnostic Testing: Radiology Impression Chest X-Ray 02/19/21 14:28 IMPRESSION: Findings suggestive of a mild degree of CHF superimposed on scarring. Electronically Signed: Fahad Majano MD at 15:17 EDT , Service support , Chest CTA 02/19/21 16:40 IMPRESSION: Normal CTA chest examination, without a demonstrated pulmonary embolism or arterial dissection. Severe fibrotic COPD and no definite acute chest disease. Electronically Signed: Andrés Marroquin MD at 17:42 EDT , Service support , Rhythm Strip Rhythm Strip: Sinus Rhythm Rate: 78 Ectopy: None Physical Exam Narrative General: Alert, Oriented x3, Cooperative HEENT: Atraumatic, PERRLA, EOMI, Normocephalic Oral: No Gingival or Mucosal Lesions/ Ulcerations Neck: Supple, No JVD, Negative Carotid Bruits Lungs: Air entry diminished in bilateral lung bases. Bilateral fine expiratory rhonchi. Severe hypoxia Cardiovascular: Regular rate, Regular Rhythm, Normal S1, Normal S2, No murmurs Abdomen: Bowel Sounds Present, Soft, Non Tender, Non-Distended : No renal angle tenderness. No suprapubic tenderness. Extremities: No edema, Capillary Refill Less than 3 Seconds Skin: No rashes, No breakdown Musculoskeletal: No Tenderness to Palpation of Joints or Extremities Neurological: Cranial nerves II-XII grossly intact, DTR 2+/4 and Symmetrical, Neuro grossly intact Psych/Mental Status: Normal Affect, Appropriate. Assessment & Plan Assessment/Plan (1) Hypoxia: PLAN: This is 72-year-old gentleman admitted for worsening shortness of breath for 1 week. 1. Acute hypoxic respiratory failure-secondary to advanced pulmonary fibrosis: Patient has CPAP at home. Admitted on MedSurg floor. Patient denies any change in cough but has low-grade fever. Patient was started on cefuroxime axetil 500 mg twice daily on 02/18. Chest x-ray and CTA did not show any focal evidence of consolidation. Chest CT individually reviewed and shows groundglass opacity and cobwebs honeycombing predominantly in basal lobes. 2D echo shows EF 60% with normal LV systolic function, normal RV function. I discussed with the work environment safety inspector and he advised early follow-up in pulmonary clinic next week. Patient wanted to go home but advised to stay for 1 day to further monitor clinically. Respiratory panel ordered. 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 #5 essential hypertension #6 hyperlipidemia Charges/Coding Visit Charges Inpatient E&M: 28011 Subs Hosp L2
[2021-02-20] MEDS: Aspirin E.C. 81 MG Tablet PO (08:51)
[2021-02-20] MEDS: predniSONE 20 MG Tablet 60 MG PO (08:51)
[2021-02-20] MEDS: Docusate Sodium 100 MG Capsule 200 MG PO (09:01)
[2021-02-20] MEDS: Pantoprazole Sodium 20 MG Tablet PO (09:02)
[2021-02-20] MEDS: amLODIPine 5 MG Tablet PO (09:02)
[2021-02-20] MEDS: Heparin Injection (Vial) 5,000 UNIT/ML VIAL 5000 UNIT SC ×2 (09:04→21:25)
[2021-02-20] MEDS: Metoprolol Tartrate 25 MG Tablet PO ×2 (10:32→19:49)
--- NOTE | 2021-02-20 12:34 | CASEMGMT ---
Pt qualifies for 2L with exertion at this time. This RN CM to room to discuss with pt and pt is sitting up on side of bed eating lunch in no distress. Pt states to call son-in-law, Jefe, for DME preference. Call to Jefe and Jefe states pt's cpap is thru [facility] and they would like to stay with them. Order obtained and faxed to [facility] at this time. Call to [facility] to notify of referral and pt discharge today, voice understanding. Pt voices no further concerns with going home at this time. SStaten RN CM
--- NOTE | 2021-02-20 15:52 | CASEMGMT ---
This RN CM to room with SELLERS form, explanation done-pt voices understanding, and signed SELLERS form. Original to chart and copy to pt. Pt voices no further questions/concerns. SStaten MADDIE CM
[2021-02-20] MEDS: Senna Tablet 2 TABLET PO (21:25)
--- NOTE | 2021-02-21 00:52 | CPS ---
pt on sleep lab machine with 3L bled in.
[2021-02-21 02:45] VITALS: BP 114/68; PULSE 67; RESP 18; TEMP 36.6; O2SAT 96
[2021-02-21 06:41] VITALS: O2SAT 96
[2021-02-21] MEDS: Aspirin E.C. 81 MG Tablet PO (07:47)
[2021-02-21] MEDS: predniSONE 20 MG Tablet 60 MG PO (07:47)
[2021-02-21 08:45] VITALS: BP 122/73; PULSE 72; RESP 18; TEMP 36.5; O2SAT 97
--- NOTE | 2021-02-21 08:52 | PCM.DC ---
Discharge Instructions Diet Discharge Diet: Low fat / Low cholesterol and 2000 mg Sodium Diet Activity Discharge Activity: Return to Normal Activity Dressing / Incision Call your doctor if you observe: Fever of 101 or Higher, Coldness, Increased Pain, Numbness or Tingling, Change in Color, Inability to urinate, Inability to have a bowel movement, Shortness of breath, Dizziness, Fainting spells, Swelling in the ankles, Chest pain, Prolonged hiccupping, Increased palpitations (irregular heartbeat) and Calf discomfort Follow Up Care Test Results: Test results from this visit will be discussed in further detail at your follow-up appointment, if applicable. Discharge Plan Admission Admit Date/Time: 02/19/21 19:30 Primary Reason for Your Visit: Pulmonary fibrosis with hypoxia Attending Provider: Behzad Lugo Primary Care Provider: Merlin Pollack Instructions Patient Instructions: Pulmonary Fibrosis Additional Instructions / Restrictions: Patient is ambulatory in home and in the community and requires home oxygen with portability for pulmonary fibrosis Discharge Orders/Prescriptions Prescriptions: New prednisone 20 mg Tablet 40 mg PO BREAKFAST Qty: 30 RF: 0 Continued nitroglycerin 0.4 mg tablet, sublingual 0.4 mg SUBLINGUAL Q5M PRN (Reason: Chest Pain) Qty: 25 RF: 3 metoprolol tartrate 25 mg tablet 25 mg PO BID RF: 0 montelukast 10 mg tablet 10 mg PO QHS RF: 0 aspirin 81 MG tablet,delayed release (DR/EC) 81 mg PO DAILY RF: 0 omeprazole 20 MG capsule 20 mg PO DAILY RF: 0 docusate sodium 100 mg Capsule 200 mg PO DAILY RF: 0 rosuvastatin 10 mg tablet 10 mg PO QODAY RF: 0 amlodipine 5 mg tablet 5 mg PO DAILY RF: 0 Discontinued cefuroxime axetil 500 mg tablet 500 mg PO BID RF: 0 Referrals / Follow Up: Merlin Pollack DO [Primary Care Provider] - Disposition Disposition (needs filled in before D/C Order can be placed): Home, Self Care
--- NOTE | 2021-02-21 08:59 | PCM.DC.SUM ---
Providers Date of Admission: 02/19/21 Primary Care Physician: Dr. Merlin Pollack DO Reason For Visit: HYPOXIA Diagnosis Discharge Diagnosis (1) Hypoxia: Status: Acute Code(s): R09.02 - Hypoxemia Medications at Discharge Home Medications aspirin 81 mg PO DAILY 06/06/16 omeprazole 20 mg PO DAILY 06/06/16 nitroglycerin 0.4 mg sublingual tablet 0.4 mg SUBLINGUAL Q5M PRN #25 tab 10/11/17 metoprolol tartrate 25 mg tablet 25 mg PO BID tab 08/13/20 montelukast 10 mg tablet 10 mg PO QHS 08/13/20 amlodipine 5 mg PO DAILY 02/19/21 docusate sodium 200 mg PO DAILY 02/19/21 rosuvastatin 10 mg PO QODAY 02/19/21 prednisone 40 mg PO BREAKFAST #30 tab 02/21/21 Hospital Course Summary of Care Provided Hospital Course: This is 72-year-old gentleman admitted for worsening shortness of breath for 1 week. 1. Acute hypoxic respiratory failure-secondary to advanced pulmonary fibrosis: Patient has CPAP at home. Admitted on [facility] floor. Patient denies any change in cough but has low-grade fever. Patient was started on cefuroxime axetil 500 mg twice daily on 02/18. Chest x-ray and CTA did not show any focal evidence of consolidation. Chest CT individually reviewed and shows groundglass opacity and cobwebs honeycombing predominantly in basal lobes. 2D echo shows EF 60% with normal LV systolic function, normal RV function. I discussed with the mill and coal transport operator and he advised early follow-up in pulmonary clinic next week. Patient is discharged on prednisone 40 mg daily for 5 days with gradual taper and meantime follow-up mill and coal transport operator Dr. Michelle in the next 1 to 2 days. Patient is ambulatory in home and in the community and requires home oxygen with portability. Also advised to upgrade CPAP to BiPAP. 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 #5 essential hypertension #6 hyperlipidemia Discharge medication reconciliation done. Discharge follow-up instructions completed. Discharge process discussed with the patient and all questions were answered to patient's satisfaction. Total time spent, exact 35 minutes on discharge meds reconciliation, examination, coordination of care with nurses and ancillary staff, review of imaging and blood test and discussion with the patient on follow-up instructions Physical Exam Narrative Seen and examined. Patient not had fever or chills. Shortness of breath is better. COVID-19 rapid antigen and respiratory panel negative. General: Alert, Oriented x3, Cooperative HEENT: Atraumatic, PERRLA, EOMI, Normocephalic Oral: No Gingival or Mucosal Lesions/ Ulcerations Neck: Supple, No JVD, Negative Carotid Bruits Lungs: Air entry diminished in bilateral lung bases. Bilateral fine expiratory rhonchi.hypoxia Cardiovascular: Regular rate, Regular Rhythm, Normal S1, Normal S2, No murmurs Abdomen: Bowel Sounds Present, Soft, Non Tender, Non-Distended : No renal angle tenderness. No suprapubic tenderness. Extremities: No edema, Capillary Refill Less than 3 Seconds Skin: No rashes, No breakdown Musculoskeletal: No Tenderness to Palpation of Joints or Extremities Neurological: Cranial nerves II-XII grossly intact, DTR 2+/4 and Symmetrical, Neuro grossly intact Psych/Mental Status: Normal Affect, Appropriate. Weight / BMI Weight Weight: 177 lb 11.081 oz Body Mass Index (BMI) 30.4 ABG / Lab / Microbiology Data Result Diagrams: 02/19/21 14:59 02/19/21 14:59 Microbiology: Microbiology 02/20/21 13:37 Mucosa - Nasopharyngeal Respiratory Panel (PCR) - Final 02/19/21 14:59 Nasal Secretion SARS-CoV-2 Antigen (Rapid) - Final Radiography Diagnostic Testing: Radiology Impression Echocardiogram 02/19/21 19:50 Interpretation Summary Normal LV size. Left ventricular systolic function is normal. The estimated ejection fraction is 60 %. Stage 1 diastolic dysfunction. Structurally normal valves. Ordering Physician: Clint Grossman Referring Physician: Merlin Pollack Performed By: Glenis Nix RDCS, RVT D/C Instructions Discharge Diet: Low fat / Low cholesterol and 2000 mg Sodium Diet Call your doctor if you observe: Fever of 101 or Higher, Coldness, Increased Pain, Numbness or Tingling, Change in Color, Inability to urinate, Inability to have a bowel movement, Shortness of breath, Dizziness, Fainting spells, Swelling in the ankles, Chest pain, Prolonged hiccupping, Increased palpitations (irregular heartbeat) and Calf discomfort Meaningful Use Info Meaningful Use Diagnoses (Choose all that apply): None applicable Discharge Plan Admission Admit Date/Time: 02/19/21 19:30 Primary Reason for Your Visit: Pulmonary fibrosis with hypoxia Attending Provider: Behzad Lugo Primary Care Provider: Merlin Pollack Instructions Patient Instructions: Pulmonary Fibrosis Additional Instructions / Restrictions: Patient is ambulatory in home and in the community and requires home oxygen with portability for pulmonary fibrosis Discharge Orders/Prescriptions Prescriptions: New prednisone 20 mg Tablet 40 mg PO BREAKFAST Qty: 30 RF: 0 Continued nitroglycerin 0.4 mg tablet, sublingual 0.4 mg SUBLINGUAL Q5M PRN (Reason: Chest Pain) Qty: 25 RF: 3 metoprolol tartrate 25 mg tablet 25 mg PO BID RF: 0 montelukast 10 mg tablet 10 mg PO QHS RF: 0 aspirin 81 MG tablet,delayed release (DR/EC) 81 mg PO DAILY RF: 0 omeprazole 20 MG capsule 20 mg PO DAILY RF: 0 docusate sodium 100 mg Capsule 200 mg PO DAILY RF: 0 rosuvastatin 10 mg tablet 10 mg PO QODAY RF: 0 amlodipine 5 mg tablet 5 mg PO DAILY RF: 0 Discontinued cefuroxime axetil 500 mg tablet 500 mg PO BID RF: 0 Referrals / Follow Up: Merlin Pollack DO [Primary Care Provider] - Disposition Disposition (needs filled in before D/C Order can be placed): Home, Self Care Charges/Coding Visit Charges Inpatient E&M: 97625 Disch Hosp
[2021-02-21] MEDS: Docusate Sodium 100 MG Capsule 200 MG PO (09:25)
[2021-02-21 09:26] VITALS: BP 122/73; PULSE 72
[2021-02-21] MEDS: amLODIPine 5 MG Tablet PO (09:26)
[2021-02-21] MEDS: Pantoprazole Sodium 20 MG Tablet PO (09:26)
[2021-02-21] MEDS: Metoprolol Tartrate 25 MG Tablet PO (09:26)
[2021-02-21 11:02] VITALS: BP 149/86; PULSE 73; RESP 18; TEMP 36.6; O2SAT 97
== END 2021-02-21 11:35 | disposition home or self-care (01) ==
LOC: ED 17:04 → MS3 21:41
PROVIDERS: Admitting Provider Internal Medicine; Emergency Provider Emergency Medicine; PCP Family Medicine; Visit Provider Internal Medicine
DX: J96.01 Acute respiratory failure with hypoxia (principal); J84.10 Pulmonary fibrosis, unspecified; C67.9 Malignant neoplasm of bladder, unspecified; E78.5 Hyperlipidemia, unspecified; I10 Essential (primary) hypertension; Z79.899 Other long term (current) drug therapy; Z95.1 Presence of aortocoronary bypass graft; Z79.82 Long term (current) use of aspirin; Z87.891 Personal history of nicotine dependence; G47.33 Obstructive sleep apnea (adult) (pediatric); I25.10 Atherosclerotic heart disease of native coronary artery without angina pectoris; R06.02 Shortness of breath
CPT/HCPCS: 71045; 71275; 80048; 83880; 84484; 85025; 87426; 87633; 93005; 93306; 94002; 94003; 96372; 99218; 99251; 99285; Q9967; G0378; G0463

== ENCOUNTER 2021-03-16 03:53 | Inpatient (IN) | payer MEDICARE, SELFPAY ==
[2021-03-16] VITALS (21 sets, daily range): BP systolic 112–152; BP diastolic 69–84; PULSE 70–111; RESP 16–36; TEMP 36.4–37.2; O2SAT 80–99; BMI 30.7
--- NOTE | 2021-03-16 04:34 | RAD_ITS ---
STUDY: X-RAY CHEST REASON FOR EXAM: Male, 80 years old. Short of breath. TECHNIQUE: AP COMPARISON: 02/19/[address] FINDINGS: Bilateral moderate to severe chronic interstitial lung disease with scattered patchy groundglass opacities similar to previous. No apparent pneumothorax or pleural effusion. Heart size within normal limits. Previous sternotomy. Atherosclerosis. RAD/Chest 1 View (Portable) IMPRESSION: No significant change. Moderate to severe pulmonary fibrosis. Scattered groundglass opacities suggest mild superimposed edema or atypical pneumonia. Electronically Signed: Monty Escalona MD at 5:20 EDT Tel , Service support ,
--- NOTE | 2021-03-16 04:34 | EKG12_ITS ---
Test Reason : DYSRHYTHMIA Blood Pressure : / mmHG Vent. Rate : 093 BPM Atrial Rate : 093 BPM P-R Int : 146 ms QRS Dur : 076 ms QT Int : 328 ms P-R-T Axes : 036 -08 012 degrees QTc Int : 407 ms Normal sinus rhythm Inferior [place], age undetermined, cannot be excluded Poor R wave progression Confirmed by RHONDA TREJO, SANTHOSH ([id number]), editorial assistant MARKELL BETTS ([id number]) on 03/19/2021 10:01:06 AM Referred By: MEÑO Confirmed By:SANTHOSH ELLIS MD
--- NOTE | 2021-03-16 04:34 | ED.VIS.DYS ---
HPI History of Present Illness Chief Complaint: Shortness of Breath Informant: patient and spouse/S.O. Narrative Narrative: Patient presents with worsening dyspnea for the last 2 to 4 days. He can sit in a chair okay. But even walking across the room he will get dyspneic and his saturations will drop to the mid to low 80s. He is wearing his oxygen during this time. He is new to oxygen over the last few weeks from his recent admission. He is on 3-1/2 L. He also wears CPAP at night. He woke up this morning and his CPAP was off and his oxygen levels were down in the 70s. He was not having chest pain. He had diffuse myalgias but states his muscles always hurt when his oxygen is low. When the oxygen level came up his myalgias went away. He coughs and brings up a little bit of clear sputum but is not more or different. No hemoptysis. No history of DVT or PE. He had a negative CTA on his last visit and normal BNP. Oxygen makes his symptoms better. Activity makes them worse. His daughter then came in. She is a respiratory therapist here. I also discussed the case more with his . Patient was on steroids until about the 17. He was good for about 1 to 2 days after those stopped but now he is worse. His daughter states he gets very dyspneic and will desaturate just walking short distances. He was diagnosed with pulmonary fibrosis in 2016 but really did not have problems till recently. He has not seen a publicity consultant. 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 There is thought that there might have been some asbestos involved in this. She is concerned because her turning up his oxygen and its not helping. He is desaturating quickly. He is getting weaker. This is really worsened again in the last few days. [facility] Medical History Atherosclerotic heart disease of [place] coronary artery without angina pectoris BiPAP (biphasic positive airway pressure) dependence Bladder cancer Essential hypertension Fatigue Hyperlipidemia Hypertension Hypoxia Pulmonary fibrosis Pure hypercholesterolemia Sleep apnea Home Medications aspirin 81 mg PO DAILY 06/06/16 [History Last Taken 02/19/21] omeprazole 20 mg PO DAILY 06/06/16 [History Last Taken 02/19/21] nitroglycerin 0.4 mg sublingual tablet 0.4 mg SUBLINGUAL Q5M PRN #25 tab 10/11/17 [Rx Last Taken Unknown] metoprolol tartrate 25 mg tablet 25 mg PO BID tab 08/13/20 [History Last Taken 02/19/21] amlodipine 5 mg PO DAILY 02/19/21 [History Last Taken 02/19/21] docusate sodium 200 mg PO DAILY 02/19/21 [History Last Taken 02/18/21] rosuvastatin 10 mg PO QODAY 02/19/21 [History Last Taken 02/17/21] Allergy/AdvReac Type Severity Reaction Status Date / Time atorvastatin [From Lipitor] Allergy Unknown Verified 03/16/21 03:54 clarithromycin [From Biaxin] Allergy Unknown Verified 03/16/21 03:54 Penicillins Allergy Unknown Verified 03/16/21 03:54 Family History Mother Colon cancer Sister Colon cancer Father CAD (coronary artery disease) Diabetes COPD (chronic obstructive pulmonary disease) Hypertension Sudden cardiac Brother CAD (coronary artery disease) Surgical History 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) History of gastrectomy History of tonsillectomy Social History Smoking Status: Former smoker alcohol intake: never substance use type: does not use caffeine: Yes Type: coffee Number of servings: 1 what type of physical activity do you participate in: none seatbelt use: always do you feel safe at home: Yes ROS ROS ED Constitutional Constitutional ED: Denies chills or fever(s) Eyes Eyes: Denies blurry vision ENT ENT ED: Denies rhinorrhea or sore throat Cardiovascular Cardiovascular: Denies chest pain or palpitations Respiratory/Chest Respiratory/Chest: Reports cough, dyspnea and dyspnea on exertion Gastrointestinal Gastrointestinal: Denies abdominal pain, nausea or vomiting Genitourinary Genitourinary ED: Denies dysuria Musculoskeletal Musculoskeletal: Reports myalgias; Denies arthralgias Integumentary Denies rash Neurologic Neurologic: Denies paresthesias Psychiatric Psychiatric: Denies depression Endocrine Endocrinology: Denies polydipsia or polyuria Hematologic/Lymphatic Hematologic/Lymphatic: Denies easy bruising Allergic/Immunologic Allergic/Immunologic ED: Denies urticaria EXAM Physical Exam Const Vital Signs: 03/16/21 03:54 03/16/21 04:02 03/16/21 04:06 Temperature 98.9 F 98.9 F Temperature Source Temporal Temporal Pulse Rate 95 97 Respiratory Rate 36 H 32 H Respiratory Effort Short of Breath Respiratory Depth Shallow Respiratory Pattern Tachypnea Blood Pressure 152/84 H 152/84 H Blood Pressure Mean 106 106 Pulse Ox 99 Oxygen Delivery Method Nasal Cannula Room Air Oxygen Flow Rate (L/min) 5 03/16/21 05:00 03/16/21 05:05 03/16/21 06:00 Temperature Temperature Source Pulse Rate 97 92 Respiratory Rate 16 32 H 18 Respiratory Effort Respiratory Depth Respiratory Pattern Tachypnea Blood Pressure 117/71 Blood Pressure Mean 86 Pulse Ox 94 Oxygen Delivery Method Nasal Cannula Oxygen Flow Rate (L/min) 03/16/21 07:11 Temperature Temperature Source Pulse Rate 111 H Respiratory Rate 35 H Respiratory Effort Respiratory Depth Respiratory Pattern Blood Pressure Blood Pressure Mean Pulse Ox 80 Oxygen Delivery Method Nasal Cannula Oxygen Flow Rate (L/min) 5 Positive well nourished and well developed General Appearance ED: well developed HEENT atraumatic Eyes General Eye ED: Negative for pale conjunctiva or scleral icterus Neck no JVD Resp Resp Narrative: Patient's respiratory rate is up a bit quicker and his effort is little higher than baseline. He does have diffuse coarse breath sounds mostly consistent with his pulmonary fibrosis. Cardio regular rate, regular rhythm and no murmurs Cardio Narrative: Well-healed median sternotomy. GI non-tender Palpation: soft Back/Spine normal to inspection Extremity normal to inspection General Extremety ED: Negative for edema or tenderness General Extremity: Negative for edema Neuro oriented x3 Sensorium / Orientation: alert Psych mental status grossly normal Skin Rashes: no rashes MDM MDM MDM Narrative Medical decision making narrative: Patient's blood work shows normal CBC. He is not anemic. No leukocytosis. Electrolytes are overall unremarkable. His glucose is mildly elevated at 185 but he was just recently on steroids. Troponin is negative. Lactate is negative. I did not repeat his CTA that was done on his recent admission. I did talk with his daughter and about his symptoms. Even sitting in bed he would occasionally desaturate to the upper 80s with his 3-1/2 L. We moved him up to 5 L and he has been good at about 94%. However, just getting him up on the edge of the bed to urinate dropped his sats to 80% while on 5 L. We really cannot send him home with this much desaturation. Plan will be to bring him in the hospital. Family would like pulmonology evaluation if able in the hospital. I discussed the case with Dr. Zhang. Lab Data Attestation: I reviewed the patient's lab results. Labs: Laboratory Results - last 24 hr 03/16/21 03/16/21 03/16/21 04:00 04:00 04:50 WBC 7.9 RBC 4.77 Hgb 13.1 Hct 41.4 MCV 86.8 MCH 27.5 MCHC 31.6 L RDW Std Deviation 47.1 H RDW Coeff of Anabela 14.8 H Plt Count 168 MPV 9.2 Immature Gran % (Auto) 0.300 Neut % (Auto) 83.2 H Lymph % (Auto) 7.0 L [place] % (Auto) 7.0 Eos % (Auto) 2.2 Baso % (Auto) 0.3 Absolute Neuts (auto) 6.6 Absolute Lymphs (auto) 0.55 L Nucleated RBC % 0 Sodium 132 L Potassium 4.7 Chloride 100 Carbon Dioxide 29.0 Anion Gap 3 L BUN 14 Creatinine 1.22 Estim Creat Clear Calc 41.79 Est GFR (MDRD) Af Amer 74 Est GFR (MDRD) Non-Af 61 BUN/Creatinine Ratio 11.5 Glucose 185 H Lactic Acid 1.4 Calcium 9.3 Troponin I High Sens 5 Radiography Diagnostic Testing: Radiology Impression Chest X-Ray 03/16/21 04:34 IMPRESSION: No significant change. Moderate to severe pulmonary fibrosis. Scattered groundglass opacities suggest mild superimposed edema or atypical pneumonia. Electronically Signed: Monty Escalona MD at 5:20 EDT Tel , Service support , EKG Initial EKG: Comments: EKG done for dyspnea read by me shows sinus rhythm with overall rate of 93. No acute ST elevation or depression. No ectopy. IN interval, QRS duration and QTc are normal. Discharge Plan Dx/Rx/DC Orders Clinical Impression: Respiratory failure with hypoxia, Pulmonary fibrosis Disposition Disposition: Acute Care Hospital [facility]
[2021-03-16 04:44] LABS: Absolute Lymphocyte Count 0.55 X10^3/uL (0.83-4.51); Absolute Neutrophil Count 6.6 X10^3/uL (2.0-7.7); Basophil# 0.02 X10^3/uL; Basophil% 0.3 % (0-1); Eosinophil# 0.17 X10^3/uL; Eosinophils% 2.2 % (0-5); Hematocrit 41.4 % (40-54); Hemoglobin 13.1 g/dL (13.0-16.5); Lymphocyte # 0.55 X10^3/ul (0.83-4.51); Mean Corp Hgb Conc 31.6 g/dL (32-36); Mean Corpuscular Hgb 27.5 pg (27.0-32.0); Mean Corpuscular Volume 86.8 fL (80-94); Mean Platelet Vol. 9.2 fl (6.2-12.0); Monocyte# 0.55 X10^3/uL; NRBC Flagged by Analyzer 0 % (0-5); Neutrophil # 6.56 X10^3/uL (2.7-7.7); Neutrophil % 83.2 % (47-70); POSITIVE DIFFERENTIAL YES; Platelet Count 168 K/mm3 (150-450); RBC Distribution Width CV 14.8 % (11.6-14.6); RBC Distribution Width SD 47.1 fl (35.1-43.9); Red Blood Count 4.77 M/mm3 (4.6-6.2); White Blood Count 7.9 K/mm3 (4.4-11.0)
[2021-03-16 04:48] LABS: Differential Indicated SCAN CRITERIA MET
[2021-03-16 04:57] LABS: Anion Gap 3 (5-15); BUN 14 mg/dL (7-18); BUN/Creat Ratio 11.5 RATIO (10-20); Calcium,Total 9.3 mg/dL (8.5-10.1); Chloride 100 mmol/L (98-107); Creatinine, Serum 1.22 mg/dL (0.70-1.30); EST Glomerular Filtration Rate 61 mL/min (>60); Est Glom Filt Rate - Afr Amer 74 mL/min (>60); Estimated Creatinine Clearance 41.79 ml/min; Glucose 185 mg/dL (74-106); Potassium 4.7 mmol/L (3.5-5.1); Sodium Level 132 mmol/L (136-145); Troponin-I HS 5 pg/mL (3.0-78.0)
[2021-03-16] MEDS: MethylPREDNISolone 125 MG/2 ML Vial IV (05:05)
[2021-03-16] MEDS: Ipratropium/Albuterol Sulfate 3 ML AMPUL.NEB INHALATION ×3 (05:05→19:05)
[2021-03-16 05:25] LABS: Lactic Acid 1.4 mmol/L (0.4-1.9)
--- NOTE | 2021-03-16 07:54 | RAD_ITS ---
STUDY: X-RAY - ABDOMEN/PELVIS REASON FOR EXAM: Male, 80 years old. abdominal pain TECHNIQUE: Single AP view of the abdomen / pelvis. COMPARISON: None. FINDINGS: Normal visualized lung bases. There is an unremarkable bowel gas pattern. The visualized liver, spleen and kidneys are grossly normal in size and morphology. Normal soft tissue structures. Normal visualized osseous structures. RAD/Abdomen Single View IMPRESSION: Normal x-ray examination of the abdomen and pelvis. Electronically Signed: Rene Nina MD at 9:08 EDT Tel , Service support ,
--- NOTE | 2021-03-16 07:55 | HP.PCM.HOS_ITS ---
HPI - General General Chief Complaint: shortness of breath HPI Narrative TOYA ROMERO, is a 80 M who presents with shortness of breath. Patient was discharged roughly 2 weeks ago with exacerbation of his pulmonary fibrosis. Patient completed his steroid taper on the . Over the weekend, patient was having abdominal pain, nausea and vomiting. He is also progressively gotten more short of breath. Patient is on 3.5 L of oxygen at home but has noted to be hypoxic into the 70s but this was when his CPAP had fallen off his face. Presented to the emergency room and with ambulation with oxygen he dropped down into the 80s. Patient has remained stable at rest on 5 L. Patient has been vaccinated for COVID-19 and did have a rapid antigen that was negative. No known COVID-19 exposures. FORMERLY [facility] Medical History Atherosclerotic heart disease of [place] coronary artery without angina pectoris BiPAP (biphasic positive airway pressure) dependence Bladder cancer Essential hypertension Fatigue Hyperlipidemia Hypertension Hypoxia Pulmonary fibrosis Pure hypercholesterolemia Sleep apnea Home Medications aspirin 81 mg PO DAILY 06/06/16 [History Last Taken 02/19/21] omeprazole 20 mg PO DAILY 06/06/16 [History Last Taken 02/19/21] nitroglycerin 0.4 mg sublingual tablet 0.4 mg SUBLINGUAL Q5M PRN #25 tab 10/11/17 [Rx Last Taken Unknown] metoprolol tartrate 25 mg tablet 25 mg PO BID tab 08/13/20 [History Last Taken 02/19/21] amlodipine 5 mg PO DAILY 02/19/21 [History Last Taken 02/19/21] docusate sodium 200 mg PO DAILY 02/19/21 [History Last Taken 02/18/21] rosuvastatin 10 mg PO QODAY 02/19/21 [History Last Taken 02/17/21] Allergy/AdvReac Type Severity Reaction Status Date / Time atorvastatin [From Lipitor] Allergy Unknown Verified 03/16/21 03:54 clarithromycin [From Biaxin] Allergy Unknown Verified 03/16/21 03:54 Penicillins Allergy Unknown Verified 03/16/21 03:54 Family History Mother Colon cancer Sister Colon cancer Father CAD (coronary artery disease) Diabetes COPD (chronic obstructive pulmonary disease) Hypertension Sudden cardiac Brother CAD (coronary artery disease) Surgical History 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) History of gastrectomy History of tonsillectomy Social History Smoking Status: Former smoker alcohol intake: never substance use type: does not use caffeine: Yes Type: coffee Number of servings: 1 what type of physical activity do you participate in: none seatbelt use: always do you feel safe at home: Yes ROS ROS Narrative Coughing up some yellow phlegm but this is a chronic process for him. No sore throat no runny nose. No chest pain. Abdominal pain, abdominal bloating, nausea and vomiting. No lower extremity edema. All review of systems were negative except as mentioned above in the history of present illness and the other review of systems. Vital Signs Vital Signs Vital Signs: 03/16/21 03:54 03/16/21 04:02 03/16/21 04:06 Temperature 37.2 C 37.2 C Temperature Source Temporal Temporal Pulse Rate 95 97 Respiratory Rate 36 H 32 H Respiratory Effort Short of Breath Respiratory Depth Shallow Respiratory Pattern Tachypnea Blood Pressure 152/84 H 152/84 H Blood Pressure Mean 106 106 Pulse Ox 99 Oxygen Delivery Method Nasal Cannula Room Air Oxygen Flow Rate (L/min) 5 03/16/21 05:00 03/16/21 05:05 03/16/21 06:00 Temperature Temperature Source Pulse Rate 97 92 Respiratory Rate 16 32 H 18 Respiratory Effort Respiratory Depth Respiratory Pattern Tachypnea Blood Pressure 117/71 Blood Pressure Mean 86 Pulse Ox 94 Oxygen Delivery Method Nasal Cannula Oxygen Flow Rate (L/min) 03/16/21 07:11 03/16/21 07:29 Temperature 36.4 C L Temperature Source Temporal Pulse Rate 111 H 89 Respiratory Rate 35 H 35 H Respiratory Effort Respiratory Depth Respiratory Pattern Blood Pressure 112/71 Blood Pressure Mean 84 Pulse Ox 80 93 Oxygen Delivery Method Nasal Cannula Nasal Cannula Oxygen Flow Rate (L/min) 5 6 Weight Weight: 81.2 kg Body Mass Index (BMI) 30.7 Physical Exam Const alert and no apparent distress General Appearance: cooperative HEENT normocephalic Eyes Eyes Narrative: No icterus Resp normal respiratory effort, no retractions, no use of accessory muscles and clear to auscultation bilaterally Cardio regular rate, regular rhythm, S1 normal heart sound and S2 normal heart sound GI normal to inspection, nondistended, normoactive bowel sounds, soft to palpation, non-tender and non-distended Extremity normal to inspection Skin no rashes or lesions noted Neuro oriented x3 Sensorium / Orientation: awake, alert, oriented to person and oriented to place Psych affect normal Results Lab / Micro Data Attestation: I reviewed the patient's lab results. Result Diagrams: 03/16/21 04:00 03/16/21 04:00 Labs: Laboratory Results - last 24 hr 03/16/21 04:00: WBC 7.9, RBC 4.77, Hgb 13.1, Hct 41.4, MCV 86.8, MCH 27.5, MCHC 31.6 L, RDW Std Deviation 47.1 H, RDW Coeff of Anabela 14.8 H, Plt Count 168, MPV 9.2, Immature Gran % (Auto) 0.300, Neut % (Auto) 83.2 H, Lymph % (Auto) 7.0 L, [place] % (Auto) 7.0, Eos % (Auto) 2.2, Baso % (Auto) 0.3, Absolute Neuts (auto) 6.6, Absolute Lymphs (auto) 0.55 L, Nucleated RBC % 0 03/16/21 04:00: Sodium 132 L, Potassium 4.7, Chloride 100, Carbon Dioxide 29.0, Anion Gap 3 L, BUN 14, Creatinine 1.22, Estim Creat Clear Calc 41.79, Est GFR (MDRD) Af Amer 74, Est GFR (MDRD) Non-Af 61, BUN/Creatinine Ratio 11.5, Glucose 185 H, Calcium 9.3, Troponin I High Sens 5 03/16/21 04:50: Lactic Acid 1.4 Micro: Microbiology 03/16/21 05:00 Nasal Secretion SARS-CoV-2 Antigen (Rapid) - Final Radiology Impression Chest X-Ray 03/16/21 04:34 IMPRESSION: No significant change. Moderate to severe pulmonary fibrosis. Scattered groundglass opacities suggest mild superimposed edema or atypical pneumonia. Electronically Signed: Monty Escalona MD at 5:20 EDT Tel , Service support , Assessment & Plan Assessment/Plan (1) Acute and chronic respiratory failure with hypoxia: (2) Pulmonary fibrosis: PLAN: 1. Acute on chronic hypoxic respiratory failure * Secondary to exacerbation of pulmonary fibrosis * currently stable on 5 L. * Wean oxygen as able. Patient's baseline oxygen is 3.5 L. 2. Acute exacerbation of pulmonary fibrosis * Chest x-ray just shows unchanged fibrotic changes. * No known exposure to COVID-19 and patient has previously been vaccinated * Rapid antigen for COVID-19 was negative. * Patient will be put on methylprednisone * Consult pulmonology for further recommendations. Patient is daughter had a lot of long-term questions which I try to manage her expectations that she would likely not get all those answers that she wants during this hospitalization * Explained the patient that he is not a candidate for a lung transplant 3. Abdominal pain, nausea and vomiting * Unclear etiology but symptoms seem to have started after having completed the prednisone taper. Patient stated that he was on 20 mg when he last took steroids * Unclear if this is related with some adrenal with insufficiency related with his prolonged prednisone taper but will see if he improves with the methyl prednisolone * Check abdominal x-ray to rule out any other process 4. VTE prophylaxis with low migraine heparin 5. CODE STATUS: Addressed with the patient. DNR Comfort Care arrest but open to intubation. Explained to the patient and his family that given his pulmonary fibrosis that he would be more difficult to get off of ventilator. 6. Bladder cancer * Chemotherapy on hold given his recent hospitalizations and ongoing steroid usage. * Follow-up with oncology as outpatient Advanced care planning: Spent additional 20 minutes discussing with the patient and his family about his chronic illnesses and palliative care and how palliative care can be of benefit to help with managing symptoms with his chronic illnesses. Charges/Coding Visit Charges Inpatient E&M: 04409 Init Hosp L3 Procedures Hospitalists Procedures: 02268 Advncd Care Plan 30 Min
--- NOTE | 2021-03-16 13:13 | CON.PCM.CC_ITS ---
Assessment & Plan Assessment/Plan (1) Pulmonary fibrosis: PLAN: RECOMMENDATIONS: 1. Obtain high-resolution chest CT. 2. Check MANPREET with reflex, CCP antibodies, rheumatoid factor, ANCA. 3. Continue corticosteroids as ordered. 4. Check BNP. Attempt gentle diuresis as tolerated by hemodynamics and renal function. 5. Wean supplemental oxygen to maintain saturations at or above 90%. 6. Encourage incentive spirometer use and mobilize patient as tolerated. IMPRESSIONS: 1. Interstitial lung disease Unclear etiology as secondary work-up has not been completed previously. Chest CT completed in January 2021 demonstrated bilateral ground glass with subpleural reticular changes and honeycomb formation. This could certainly be suggestive of idiopathic pulmonary fibrosis. However, the patient did report previously that he noted symptom improvement with corticosteroids. Therefore, will order secondary work-up for ILD including autoimmune/vasculitis panel. In the meantime, will obtain high-resolution chest CT. The patient will be continued on systemic corticosteroids. Plan to wean supplemental oxygen as tolerated to maintain saturations at or above 90%. I did ask the patient and his family to obtain the name of the chemotherapeutic agents being utilized to treat his bladder cancer so that I can assess the possibility for pulmonary toxicity. 2. History of coronary artery disease/history of bladder cancer /hypertension/hyperlipidemia/GERD Complicates care, management, recovery and prognosis. Continue home medications as ordered. This note was generated with [employer] dictation software. It may contain incorrect words, spelling, and punctuation that were not noted in checking the note before signing. HPI Consult Data Date of Consult: 03/16/21 HPI Narrative Reason for Consultation: Interstitial lung disease HPI Narrative: The patient is a 80-year-old male, with a history as outlined below, who presented to the emergency department on March 16 with worsening dyspnea and hypoxemia. The patient reported to me that he was initially diagnosed with mild pulmonary fibrosis in 2015. He has been followed by Dr. Alcides byrne in the pulmonary medicine clinic, having last been seen by him in August 2020. Pulmonary function studies from May 2016 revealed evidence of a mild restrictive ventilatory impairment with symmetric reduction in diffusing capacity. The patient's medical history is also significant for coronary artery disease status post CABG, for which he follows with Dr. Atkins in the cardiology clinic. The patient also carries a diagnosis of bladder CA for which he is currently receiving therapy. The patient was recently discharged from the hospital at the end of January 2021 after being admitted with respiratory failure. The patient was discharged home on supplemental oxygen and prednisone. 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 The patient did report improvement in his dyspnea when he was treated with prednisone. However, several days after the prednisone taper was stopped his dyspnea resumed. On presentation to the emergency department, the patient was noted to be afebrile and hemodynamically stable. He was notably tachypneic and requiring 5 L/min of supplemental oxygen via nasal cannula. Initial laboratory evaluation revealed no evidence of a leukocytosis. Chemistry profile was likewise unrevealing. Rapid coronavirus antigen testing was negative. [facility] Medical History Atherosclerotic heart disease of [place] coronary artery without angina pectoris BiPAP (biphasic positive airway pressure) dependence Bladder cancer Essential hypertension Fatigue Hyperlipidemia Hypertension Hypoxia Pulmonary fibrosis Pure hypercholesterolemia Sleep apnea Home Medications aspirin 81 mg PO DAILY 06/06/16 [History Last Taken 03/15/21] omeprazole 20 mg PO DAILY 06/06/16 [History Last Taken 03/15/21] metoprolol tartrate 25 mg tablet 25 mg PO BID tab 08/13/20 [History Last Taken 03/15/21] amlodipine 5 mg PO DAILY 02/19/21 [History Last Taken 03/15/21] docusate sodium 200 mg PO DAILY 02/19/21 [History Last Taken 03/15/21] rosuvastatin 10 mg PO QODAY 02/19/21 [History Last Taken 03/15/21] nitroglycerin 0.4 mg SUBLINGUAL PRN PRN 03/16/21 [History Last Taken Unknown] Allergy/AdvReac Type Severity Reaction Status Date / Time atorvastatin [From Lipitor] Allergy Unknown Verified 03/16/21 03:54 clarithromycin [From Biaxin] Allergy Unknown Verified 03/16/21 03:54 Penicillins Allergy Unknown Verified 03/16/21 03:54 Family History Mother Colon cancer Sister Colon cancer Father CAD (coronary artery disease) Diabetes COPD (chronic obstructive pulmonary disease) Hypertension Sudden cardiac Brother CAD (coronary artery disease) Surgical History 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) History of gastrectomy History of tonsillectomy Social History Smoking Status: Former smoker alcohol intake: never substance use type: does not use caffeine: Yes Type: coffee Number of servings: 1 what type of physical activity do you participate in: none seatbelt use: always do you feel safe at home: Yes ROS Constitutional Constitutional: Denies body ache(s), chills or fatigue Eyes Eyes: Denies blurry vision or change in vision ENT HEENT: Denies dizziness, dysphagia or nasal discharge Cardiovascular Cardiovascular: Reports dyspnea; Denies edema or lightheadedness Respiratory/Chest Respiratory/Chest: Reports cough and dyspnea; Denies chest tightness Gastrointestinal Gastrointestinal: Reports abdominal pain Genitourinary Genitourinary: Reports difficulty urinating Musculoskeletal Musculoskeletal: Denies arthralgias or back pain Integumentary Integumentary: Denies lesions, rash or skin ulcer Neurologic Neurologic: Denies abnormal gait or abnormal speech Psychiatric Psychiatric: Denies anxiety or depression Endocrine Endocrinology: Reports fatigue Hematologic/Lymphatic Hematologic/Lymphatic: Denies easy bleeding or easy bruising Physical Exam Const alert and no apparent distress General Appearance: cooperative HEENT normocephalic and head/scalp atraumatic Eyes PERRL, EOMs intact bilaterally and conjunctivae normal Neck supple and no JVD General: trachea midline Chest inspection of chest normal Resp normal respiratory effort Effort and Inspection: Negative for actively coughing Auscultation: rales bilateral; Negative for rhonchi or wheezes Cardio regular rate and regular rhythm GI normal to inspection, nondistended, normoactive bowel sounds Extremity no clubbing, cyanosis or edema Skin no rashes or lesions noted Neuro CN's II-XII intact bilaterally, moves all extremities and no focal motor deficits Psych cooperative and affect normal Lab / Micro Data Result Diagrams: 03/16/21 04:00 03/16/21 04:00 Labs: Laboratory Results - last 24 hr 03/16/21 04:00: WBC 7.9, RBC 4.77, Hgb 13.1, Hct 41.4, MCV 86.8, MCH 27.5, MCHC 31.6 L, RDW Std Deviation 47.1 H, RDW Coeff of Anabela 14.8 H, Plt Count 168, MPV 9.2, Immature Gran % (Auto) 0.300, Neut % (Auto) 83.2 H, Lymph % (Auto) 7.0 L, [place] % (Auto) 7.0, Eos % (Auto) 2.2, Baso % (Auto) 0.3, Absolute Neuts (auto) 6.6, Absolute Lymphs (auto) 0.55 L, Nucleated RBC % 0 03/16/21 04:00: Sodium 132 L, Potassium 4.7, Chloride 100, Carbon Dioxide 29.0, Anion Gap 3 L, BUN 14, Creatinine 1.22, Estim Creat Clear Calc 41.79, Est GFR (MDRD) Af Amer 74, Est GFR (MDRD) Non-Af 61, BUN/Creatinine Ratio 11.5, Glucose 185 H, Calcium 9.3, Troponin I High Sens 5 03/16/21 04:50: Lactic Acid 1.4 Micro: Microbiology 03/16/21 05:00 Nasal Secretion SARS-CoV-2 Antigen (Rapid) - Final Radiology Impression Chest X-Ray 03/16/21 04:34 IMPRESSION: No significant change. Moderate to severe pulmonary fibrosis. Scattered groundglass opacities suggest mild superimposed edema or atypical pneumonia. Electronically Signed: Monty Escalona MD at 5:20 EDT Tel , Service support , KUB X-Ray 03/16/21 07:54 IMPRESSION: Normal x-ray examination of the abdomen and pelvis. Electronically Signed: Rene Nina MD at 9:08 EDT Tel , Service support , Charges/Coding Visit Charges Inpatient E&M: 90313 Init Hosp L3
--- NOTE | 2021-03-16 13:30 | CT_ITS ---
STUDY: CT CHEST WITHOUT CONTRAST REASON FOR EXAM: Male, 80 years old. ILD- High Res Scan -- High Res Scan RADIATION DOSAGE (If Supplied By Facility): CTDIvol = ( 16.73 ) mGy, DLP = ( 515.35 ) mGycm TECHNIQUE: Transaxial imaging was performed without the administration of intravenous contrast material. Individualized dose optimization techniques were used for this CT. COMPARISON: Chest x-ray earlier today, CT 02/19/2021 FINDINGS: Status post median sternotomy. Thickening of the interlobular septa particularly in the periphery of the lungs with intervening cystic spaces consistent with honeycombing likely from idiopathic pulmonary fibrosis. Large areas of groundglass opacity consistent with mosaic attenuation. No superimposed alveolar opacity to suggest pneumonia or atelectasis. Mild diffuse cylindrical bronchiectasis. There is no demonstrated pleural abnormality. Normal heart and pericardium. There are calcifications of the coronary arteries. Normal mediastinum. Normal hilar regions. Normal unenhanced pulmonary arteries. Normal aorta arch and descending thoracic aorta. Normal osseous structures. There is no demonstrated abnormality of the visualized upper abdomen. CT/Chest without Contrast IMPRESSION: Idiopathic pulmonary fibrosis with mosaic attenuation and mild diffuse cylindrical bronchiectasis. Electronically Signed: Rene Nina MD at 14:32 EDT Tel , Service support ,
[2021-03-16] MEDS: 0.9% Saline Lock 10 ML Syringe IV ×2 (13:35→21:33)
[2021-03-16] MEDS: Docusate Sodium 100 MG Capsule 200 MG PO (13:35)
[2021-03-16] MEDS: Aspirin E.C. 81 MG Tablet PO (13:35)
[2021-03-16] MEDS: Pantoprazole Sodium 20 MG Tablet PO (13:35)
[2021-03-16] MEDS: amLODIPine 5 MG Tablet PO (13:35)
[2021-03-16] MEDS: Metoprolol Tartrate 25 MG Tablet PO ×2 (13:35→21:33)
[2021-03-16 13:59] LABS: BNP,B-Type NATRIURETIC PEPTIDE 10.3 pg/mL (0-100)
--- NOTE | 2021-03-16 15:24 | CHAPLAIN ---
Type of Pastoral Visit _x__ Initial Visit ___ Follow-up Visit ___ On-call Visit ___ General Patient Visit ___ Spiritual Assessment ___ Family Conference ___ Bereavement ___ Rapid Response ___ Code Blue ___ Other (describe below) Pastoral Care Referral From _x__ Patient ___ Family ___ Nurse ___ Physician ___ Sustainability Manager ___ Hand Counter ___ Other (describe below) Sacrament/Intervention _x__ Active listening ___ Anointing ___ Orthodox ___ Bereavement ___ Communion ___ Amarilis exploration ___ ___ Life review ___ Prayer ___ Reconciliation ___ Sacrament of Sick _x__ Supportive presence ___ Wedding ___ Other (describe below) Pastoral Comments
--- NOTE | 2021-03-16 16:25 | PCS.PANDOC ---
PANDEMIC DOCUMENTATION INITIATED: Date: 03/16/2021 Time: 7781
--- NOTE | 2021-03-16 23:13 | NURSING ---
Pt's daughter brought in paper w/ chemo meds that pt gets for his bladder cancer. They are docetaxel 1 mg injection and gemcitabine HCl 200 mg injection. MADDIE Escamilla.
--- NOTE | 2021-03-16 23:22 | CPS ---
sleep lab bipap
[2021-03-17] VITALS (22 sets, daily range): BP systolic 116–138; BP diastolic 58–96; PULSE 72–97; RESP 20–32; TEMP 36.3–37.1; O2SAT 92–98
[2021-03-17 06:37] LABS: Absolute Lymphocyte Count 0.55 X10^3/uL (0.83-4.51); Absolute Neutrophil Count 10.8 X10^3/uL (2.0-7.7); Basophil# 0.01 X10^3/uL; Basophil% 0.1 % (0-1); Hematocrit 37.1 % (40-54); Lymphocyte # 0.55 X10^3/ul (0.83-4.51); Lymphocyte % 4.6 % (19-41); Mean Corp Hgb Conc 32.3 g/dL (32-36); Mean Corpuscular Hgb 27.4 pg (27.0-32.0); Mean Corpuscular Volume 84.7 fL (80-94); NRBC Flagged by Analyzer 0 % (0-5); Neutrophil # 10.77 X10^3/uL (2.7-7.7); Neutrophil % 89.9 % (47-70); POSITIVE DIFFERENTIAL YES; Platelet Count 184 K/mm3 (150-450); RBC Distribution Width CV 14.6 % (11.6-14.6); RBC Distribution Width SD 44.7 fl (35.1-43.9); Red Blood Count 4.38 M/mm3 (4.6-6.2)
[2021-03-17 06:42] LABS: Differential Indicated SCAN CRITERIA MET
[2021-03-17] MEDS: Ipratropium/Albuterol Sulfate 3 ML AMPUL.NEB INHALATION ×4 (06:42→19:19)
[2021-03-17 07:11] LABS: ALB/GLOB Ratio 0.5 RATIO (0.9-2.4); AST(SGOT) 20 U/L (15-37); Alanine Aminotransfer ALT/SGPT 16 U/L (16-61); Albumin, Serum 2.6 g/dL (3.2-5.0); Alkaline Phosphatase 73 U/L (45-117); Anion Gap 10 (5-15); BUN 22 mg/dL (7-18); Calcium,Total 9.1 mg/dL (8.5-10.1); Chloride 100 mmol/L (98-107); Creatinine, Serum 1.22 mg/dL (0.70-1.30); EST Glomerular Filtration Rate 61 mL/min (>60); Est Glom Filt Rate - Afr Amer 74 mL/min (>60); Estimated Creatinine Clearance 41.79 ml/min; Globulin 4.9 g/dL (2.2-4.2); Glucose 280 mg/dL (74-106); Potassium 4.5 mmol/L (3.5-5.1); Protein, Total 7.5 g/dL (6.4-8.2); Sodium Level 132 mmol/L (136-145)
[2021-03-17] MEDS: Docusate Sodium 100 MG Capsule 200 MG PO (08:47)
[2021-03-17] MEDS: amLODIPine 5 MG Tablet PO (08:47)
[2021-03-17] MEDS: Metoprolol Tartrate 25 MG Tablet PO ×2 (08:47→20:53)
[2021-03-17] MEDS: Aspirin E.C. 81 MG Tablet PO (08:47)
[2021-03-17] MEDS: Pantoprazole Sodium 20 MG Tablet PO (08:48)
--- NOTE | 2021-03-17 11:15 | CASEMGMT ---
MADDIE MÉNDEZ Face to Face with patient for initial transition planning/care coordination assessment. RN CM introduced self and role at [facility]. Patient lying in bed, alert and oriented. Patient willing to participate in assessment and is able to answer all questions appropriately. Care providers, pharmacy, and demographics verified. Patient wishes to discharge home, will monitor need for HHC pending therapy. Patient states he has no further needs or concerns at this time. CM to follow for discharge planning needs that may arise. PCP: Jaki Specialists: Miguel Angel managed care analyst; Wilbert trimmer operator three knife Preferred Pharmacy: [facility] Insurance: [place] [facility] Prescription Benefit: yes Living Will/HPOA: yes, Bria Nobles LNOK: , daughter Living Arrangements: patient lives with in a single story home with 1 step to enter the home. Patient states he is independent at home. Transportation: daughter DME/HHC: Patient states he has grab bars, walker, cpap, nebulizer, and home oxygen with portability at 3.5 lpm through [employer]. Patient denies previous HHC Disposition Plan: Patient to discharge home with family support and follow-up plans in place. Will monitor for need for HHC pending progress with therapy. Peggy MALDONADO, RN, CM
--- NOTE | 2021-03-17 15:16 | PCM.PN.HOSP ---
Subjective Subjective Patient was seen and examined. He is on 12 L of oxygen. He is short of breath with the least movement. Denies fever or chills. He has been coughing whitish sputum. Objective Data Objective Data Vital Signs: Vital Signs Temp Pulse Resp BP Pulse Ox 98.4 F 86 24 H 138/74 H 95 03/17/21 12:48 03/17/21 14:54 03/17/21 14:54 03/17/21 12:48 03/17/21 12:48 Oxygen Flow Rate (L/min) 12 Oxygen Delivery Method Nasal Cannula Weight: 81.2 kg Body Mass Index (BMI) 30.7 Intake & Output: Intake and Output for Last 24 Hours 03/15/21 03/16/21 03/17/21 23:59 23:59 23:59 Intake Total 440 / 440 Balance 440 / 440 Lab / Micro Data Result Diagrams: 03/17/21 06:05 03/17/21 06:05 Labs: Laboratory Results - last 24 hr 03/17/21 06:05: WBC 12.0 H, RBC 4.38 L, Hgb 12.0 L, Hct 37.1 L, MCV 84.7, MCH 27.4, MCHC 32.3, RDW Std Deviation 44.7 H, RDW Coeff of Anabela 14.6, Plt Count 184, MPV 9.0, Immature Gran % (Auto) 0.400, Neut % (Auto) 89.9 H, Lymph % (Auto) 4.6 L, [place] % (Auto) 5.0, Eos % (Auto) 0.0, Baso % (Auto) 0.1, Absolute Neuts (auto) 10.8 H, Absolute Lymphs (auto) 0.55 L, Nucleated RBC % 0 03/17/21 06:05: Sodium 132 L, Potassium 4.5, Chloride 100, Carbon Dioxide 22.0, Anion Gap 10, BUN 22 H, Creatinine 1.22, Estim Creat Clear Calc 41.79, Est GFR (MDRD) Af Amer 74, Est GFR (MDRD) Non-Af 61, BUN/Creatinine Ratio 18.0, Glucose 280 H, Calcium 9.1, Total Bilirubin 0.40, AST 20, ALT 16, Alkaline Phosphatase 73, Total Protein 7.5, Albumin 2.6 L, Globulin 4.9 H, Albumin/Globulin Ratio 0.5 L Micro: Microbiology 03/16/21 05:00 Nasal Secretion SARS-CoV-2 Antigen (Rapid) - Final Physical Exam Narrative Physical exam: General: Alert, Oriented x3, Cooperative, in moderate respiratory distress, on 12 L of oxygen HEENT: Atraumatic Oral: Moist Mucosa Neck: Supple Lungs: Diminished, few crackles at the bases Cardiovascular: HS I+II, regular, no murmurs Abdomen: Bowel Sounds Present, Soft, Non Tender Extremities: No edema Assessment & Plan Assessment/Plan (1) Acute and chronic respiratory failure with hypoxia: (2) Pulmonary fibrosis: PLAN: 1. Acute on chronic hypoxic respiratory failure secondary to acute exacerbation of pulmonary fibrosis Patient's respiratory status has worsened. He is on 3.5 L at home. Currently on 12 L of oxygen Will give Lasix 20 mg IV x1, continue breathing treatment, continue IV steroids 2. Acute exacerbation of pulmonary fibrosis, moderate to severe Chest x-ray just shows unchanged fibrotic changes. Patient has been vaccinated Rapid antigen for COVID-19 was negative. Continue on IV steroids, breathing treatments Will check sputum culture Pulmonology following 4. Bladder cancer, follows with oncology Charges/Coding Visit Charges Inpatient E&M: 14923 Subs Hosp L3
--- NOTE | 2021-03-17 15:50 | PCM.CONS.P ---
Assessment & Plan Assessment/Plan (1) Dyspnea on exertion: (2) Acute and chronic respiratory failure with hypoxia: (3) Pulmonary fibrosis: (4) Fatigue: QUALIFIERS: Fatigue type: unspecified Qualified Code(s): R53.83 - Other fatigue (5) hisotry of left lung wedge resection: (6) History of coronary artery bypass graft x 3: (7) Atherosclerotic heart disease of [place] coronary artery without angina pectoris: QUALIFIERS: [place] vs. transplanted heart: [place] heart Qualified Code(s): I25.10 - Atherosclerotic heart disease of [place] coronary artery without angina pectoris (8) Essential hypertension: (9) CRISS (obstructive sleep apnea): (10) Bladder cancer: QUALIFIERS: Bladder location: unspecified site Qualified Code(s): C67.9 - Malignant neoplasm of bladder, unspecified PLAN: 80-year-old male with acute on chronic hypoxemic respiratory failure, pulmonary fibrosis, follows with pulmonary. Having some increased shortness of breath. Seen today for palliative consultation for symptom management of shortness of breath. 1. Shortness of breath: Wears PAP at night, follows with PMW, last seen 03/05/2021, at which time PFTs were ordered and possible referral to pulmonary rehab once those results were obtained. He was encouraged to restrict sodium. ?Hospitalized 02/19-02/21 for acute hypoxia. Initiated O2 @2L supplementation at home for his advanced pulmonary fibrosis. Pending repeat PFTs, to f/u in 3 mo w/ Dr. Michelle. ?Currently on IV steroids. Had a one-time dose of Lasix 20 mg IV. He has never been on any medications for his shortness of breath, such as Roxanol or oxycodone. ?Poor quality of life at this point due to severe activity intolerance. Would recommend small dose of Roxanol to start with, 2.5 mg every 4 hours as needed for shortness of breath. It may improve his activity tolerance and overall quality of life. Would stressed importance of wearing PAP therapy with all sleep as to avoid respiratory depression and hypoxemia. 2. Acute on chronic hypoxemic respiratory failure/pulmonary fibrosis: He is in the process of work-up, following with pulmonary medicine of [place]. He had a CT of the chest yesterday, results reviewed. He is requiring significant oxygen supplementation with 12 L and saturating at 94%. Defer management to pulmonary, see recommendations above. 3. Fatigue/history of CABG/CAD/HTN/CRISS/bladder cancer: Complicates overall care, management, recovery, and prognosis. Unclear what current treatment for bladder cancer, may be contributing to symptoms? Defer management to hospitalist/specialists. We will follow him as an outpatient, if he is agreeable to services. Liaison will be out in the next 24 to 48 hours. Thank you for the opportunity to participate in this patient's care, please do not hesitate to contact [facility] with any further questions or concerns. Palliative direct line is [phone]. We will follow up and get consent signed. Greater than 50% of F2F visit dedicated to education and counseling of palliative care services, medications, comorbid conditions and potential assistance with management, and plan of care moving forward. Start time: 1545 End time: 1647 HPI Consult Data Date of Consult: 03/17/21 HPI Narrative HPI Narrative: TOYA ROMERO, is a 80 M who presents to [facility] 03/16/2021 with increased shortness of breath and severe activity intolerance. He was just in the hospital in January with the same symptoms. He was desaturating in the 80s with 3.5 L of oxygen supplementation, new to oxygen over the last few weeks since his last hospitalization. Wears CPAP at night, was recommended by pulmonary at his last visit to have a repeat study in probable transition to BiPAP. Daughter and reported that increases in oxygen supplementation have not been successful in helping with his dyspnea. He desaturates very quickly. Possible prior chemical exposures and asbestos exposure. Was desaturating into the 80s on 5 L in the ER, therefore patient was admitted for further evaluation and management. Patient seen by pulmonary, who recommended a high-resolution CT of the chest, MANPREET, CCP antibodies, rheumatoid factors, and ANCA. The only thing back is his rheumatoid factor, which is elevated at 134. BNP was unremarkable. He was given a small dose of Lasix. Patient also notes he has bladder cancer and on chemotherapy. I did review the CT of the chest from 03/16, impression is idiopathic pulmonary fibrosis with mosaic attenuation and mild diffuse cylindrical bronchiectasis. Patient reports he is frustrated with poor activity tolerance. His shortness of breath came on rather abruptly in January, otherwise he was doing fairly well at home. He retired in 2004. He is wanting to know what can be done to help with his dyspnea. We discussed palliative services, benefits and limitations of the program, and potential medications to help with his dyspnea. We discussed oxycodone and Roxanol, which I recommended Roxanol to the patient. He is willing to try anything. He denies any nausea, vomiting, diarrhea, constipation. No dizziness or syncope. No recent falls. No abdominal pain. Says it hurts to take a deep breath, mostly midsternal. He does have some urinary issues with urgency and frequency at times. No significant lower extremity edema. He has had a left lung wedge resection in the past and has significant cardiac history with CABG x3 in 2017. Follows [address] Dr[address] Atkins. [facility] Medical History (Updated 03/17/21 @ 16:00 by ELIZABETH Ovalle) Atherosclerotic heart disease of [place] coronary artery without angina pectoris BiPAP (biphasic positive airway pressure) dependence Bladder cancer Essential hypertension Fatigue Hyperlipidemia Hypertension Hypoxia Pulmonary fibrosis Pure hypercholesterolemia Sleep apnea Home Medications aspirin 81 mg PO DAILY 06/06/16 [History Last Taken 03/15/21] omeprazole 20 mg PO DAILY 06/06/16 [History Last Taken 03/15/21] metoprolol tartrate 25 mg tablet 25 mg PO BID tab 08/13/20 [History Last Taken 03/15/21] amlodipine 5 mg PO DAILY 02/19/21 [History Last Taken 03/15/21] docusate sodium 200 mg PO DAILY 02/19/21 [History Last Taken 03/15/21] rosuvastatin 10 mg PO QODAY 02/19/21 [History Last Taken 03/15/21] nitroglycerin 0.4 mg SUBLINGUAL PRN PRN 03/16/21 [History Last Taken Unknown] Allergy/AdvReac Type Severity Reaction Status Date / Time atorvastatin [From Lipitor] Allergy Unknown Verified 03/16/21 03:54 clarithromycin [From Biaxin] Allergy Unknown Verified 03/16/21 03:54 Penicillins Allergy Unknown Verified 03/16/21 03:54 Family History Mother Colon cancer Sister Colon cancer Father CAD (coronary artery disease) Diabetes COPD (chronic obstructive pulmonary disease) Hypertension Sudden cardiac Brother CAD (coronary artery disease) Surgical History 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 Physical Exam Const alert, oriented x3 and no apparent distress General Appearance: cooperative Nutritional Appearance: obese HEENT normocephalic and head/scalp atraumatic Neck supple General: trachea midline Resp Resp Narrative: Mild dyspnea with conversation Effort and Inspection: able to speak in complete sentences and symmetric chest movement Auscultation: wheezes expiratory wheezes (Few end expiratory wheeze posteriorly) and diminished lung sounds diffuse; Negative for rales or rhonchi Cardio regular rate, regular rhythm, S1 normal heart sound and S2 normal heart sound GI normal to inspection, nondistended, normoactive bowel sounds Extremity no clubbing, cyanosis or edema Skin no rashes or lesions noted Neuro moves all extremities and no focal motor deficits Psych mental status grossly normal Appearance: grossly normal Attitude: calm and engaged Activity / Motor Behavior: appropriate eye contact Speech: normal speech Insight: insight good
[2021-03-17] MEDS: 0.9% Saline Lock 10 ML Syringe IV ×2 (15:51→20:53)
[2021-03-17] MEDS: Mag Hydrox/Al Hydrox/Simeth 30 ML UDC 15 ML PO (20:53)
[2021-03-18] VITALS (17 sets, daily range): BP systolic 103–146; BP diastolic 62–73; PULSE 65–89; RESP 18–25; TEMP 36.6–36.7; O2SAT 86–97
[2021-03-18] MEDS: 0.9% Saline Lock 10 ML Syringe IV ×3 (05:16→15:09)
[2021-03-18] MEDS: Ipratropium/Albuterol Sulfate 3 ML AMPUL.NEB INHALATION ×4 (07:26→19:38)
[2021-03-18] MEDS: Aspirin E.C. 81 MG Tablet PO (08:24)
[2021-03-18] MEDS: Docusate Sodium 100 MG Capsule 200 MG PO (08:24)
[2021-03-18] MEDS: Metoprolol Tartrate 25 MG Tablet PO ×2 (08:25→21:53)
[2021-03-18] MEDS: amLODIPine 5 MG Tablet PO (08:26)
[2021-03-18] MEDS: Pantoprazole Sodium 20 MG Tablet PO (08:26)
--- NOTE | 2021-03-18 15:00 | PCM.PN.HOSP ---
Subjective Subjective Patient was seen and examined. He is progressive short of breath, even with minimal exertion. He is on a nonrebreather mask. Objective Data Objective Data Vital Signs: Vital Signs Temp Pulse Resp BP Pulse Ox 98.0 F 88 20 H 132/62 H 96 03/18/21 08:20 03/18/21 11:04 03/18/21 11:04 03/18/21 08:25 03/18/21 08:20 Oxygen Flow Rate (L/min) 12 Oxygen Delivery Method Nasal Cannula Weight: 81.2 kg Body Mass Index (BMI) 30.7 Intake & Output: Intake and Output for Last 24 Hours 03/16/21 03/17/21 03/18/21 23:59 23:59 23:59 Intake Total 560 / 560 360 / 360 Output Total 0 / 0 250 / 250 Balance 560 / 560 110 / 110 Lab / Micro Data Result Diagrams: 03/17/21 06:05 03/17/21 06:05 Micro: Microbiology 03/16/21 05:00 Nasal Secretion SARS-CoV-2 Antigen (Rapid) - Final Physical Exam Narrative Physical exam: General: Alert, Oriented x3, Cooperative, in moderate respiratory distress, on 12 L of oxygen HEENT: Atraumatic Oral: Moist Mucosa Neck: Supple Lungs: Diminished, crackles at the mid-lung and bases Cardiovascular: HS I+II, regular, no murmurs Abdomen: Bowel Sounds Present, Soft, Non Tender Extremities: No edema Assessment & Plan Assessment/Plan (1) Acute and chronic respiratory failure with hypoxia: (2) Pulmonary fibrosis: PLAN: 1. Acute on chronic hypoxic respiratory failure secondary to acute exacerbation of pulmonary fibrosis Patient's respiratory status is progressively worse; now on non-rebreather mask, 12L oxygen He was on 3.5 L at home I had a family meeting at the bedside with the daughter and , patient agrees to hospice consult. He wants to be discharged home with hospice ideally Continue breathing treatment, continue IV steroids 2. Acute exacerbation of pulmonary fibrosis, moderate to severe Chest x-ray just shows unchanged fibrotic changes. Patient has been vaccinated Rapid antigen for COVID-19 was negative. Continue on IV steroids, breathing treatments Will check sputum culture Pulmonology following 4. Bladder cancer, follows with oncology Charges/Coding Visit Charges Inpatient E&M: 17876 Subs Hosp L3
[2021-03-18] MEDS: Furosemide 20 MG/2 ML VIAL IV (15:08)
[2021-03-18 17:00] LABS: ANTINUCLEAR ANTIBODIES DIRECT Negative (Negative)
[2021-03-19] VITALS (10 sets, daily range): BP systolic 132–147; BP diastolic 65–77; PULSE 72–85; RESP 18–30; TEMP 36.4–36.9; O2SAT 93–98
[2021-03-19] MEDS: Mag Hydrox/Al Hydrox/Simeth 30 ML UDC 15 ML PO ×2 (04:47→17:33)
[2021-03-19] MEDS: Ipratropium/Albuterol Sulfate 3 ML AMPUL.NEB INHALATION ×3 (07:03→17:33)
--- NOTE | 2021-03-19 07:09 | CASEMGMT ---
Late Entry. Note from 03-18-21 SW was asked to make a referral to Hospice. Grounds/Maintenance Specialist faxed information. SW called and spoke with Mago at Hospice regarding referral. SW received a voice mail from Mago at Hospice and the liaison will be meeting with patient and family 03-19 at 3p. Martha CORONEL
[2021-03-19] MEDS: Pantoprazole Sodium 20 MG Tablet PO (10:01)
[2021-03-19] MEDS: Aspirin E.C. 81 MG Tablet PO (10:01)
[2021-03-19] MEDS: Docusate Sodium 100 MG Capsule 200 MG PO (10:01)
[2021-03-19] MEDS: amLODIPine 5 MG Tablet PO (10:01)
[2021-03-19] MEDS: Metoprolol Tartrate 25 MG Tablet PO (10:02)
--- NOTE | 2021-03-19 14:26 | PN.CC_ITS ---
Assessment & Plan Assessment/Plan (1) Pulmonary fibrosis: PLAN: RECOMMENDATIONS: 1. Autoimmune work-up still pending. 2. Agree with hospice care referral. 3. Wean oxygen as tolerated. 4. Encourage incentive spirometer use and mobilize patient as tolerated. IMPRESSIONS: 1. Interstitial lung disease Based upon the patient's most recent chest CT, the radiographic findings are concerning for idiopathic pulmonary fibrosis. The patient's symptoms and hypoxemia is likely secondary to overall disease progression. Unfortunately, there are no good treatment options available for IPF at this particular stage. Continue supplemental oxygen as tolerated for saturations greater than 90%. Agree with consideration for hospice care referral. 2. History of coronary artery disease/history of bladder cancer/hypertension/hyperlipidemia/GERD Complicates care, management, recovery and prognosis. Continue home medications as ordered. This note was generated with [employer] dictation software. It may contain incorrect words, spelling, and punctuation that were not noted in checking the note before signing. Subjective Subjective The patient was seen and examined at the bedside this morning. Events from the last 24 hours have been reviewed. The patient is currently afebrile, hemodynamically stable and maintaining appropriate oxygen saturations on 12 L/min via nasal cannula. The patient remains dyspneic with any amount of exertion. Objective Data Objective Data The patient's most recent lab work, culture data and imaging studies have all been personally reviewed. Vital Signs: Vital Signs Temp Pulse Resp BP Pulse Ox 97.6 F L 78 24 H 136/65 H 96 03/19/21 10:00 03/19/21 10:45 03/19/21 10:45 03/19/21 10:02 03/19/21 10:00 Oxygen Flow Rate (L/min) 13 Oxygen Delivery Method Nasal Cannula Weight: 81.2 kg Body Mass Index (BMI) 30.7 Intake & Output: Intake and Output for Last 24 Hours 03/17/21 03/18/21 03/19/21 23:59 23:59 23:59 Intake Total 560 / 560 480 / 480 375 / 375 Output Total 0 / 0 700 / 950 650 / 650 Balance 560 / 560 -220 / -470 -275 / -275 Lab / Micro Data Attestation: I reviewed the patient's lab results. Result Diagrams: 03/17/21 06:05 03/17/21 06:05 Labs: Laboratory Results - last 24 hr 03/16/21 04:00: MANPREET Screen Negative, VIKRAM-1 Antibody Not Reportable, SS-A/Ro IgG Antibody Not Reportable, SS-B/La IgG Antibody Not Reportable, Sm (Menjivar) Antibody Not Reportable, UROLOGY NURSE Antibody Not Reportable, Scl-70 Scleroderma Ab Not Reportable, Double Strand DNA Ab Not Reportable, Centromere B Antibody Not Reportable Micro: Microbiology 03/16/21 05:00 Nasal Secretion SARS-CoV-2 Antigen (Rapid) - Final Physical Exam Const alert and no apparent distress General Appearance: cooperative HEENT normocephalic and head/scalp atraumatic Eyes PERRL, EOMs intact bilaterally and conjunctivae normal Neck supple and no JVD General: trachea midline Chest inspection of chest normal Resp normal respiratory effort Effort and Inspection: Negative for actively coughing Auscultation: rales bilateral; Negative for rhonchi or wheezes Cardio regular rate and regular rhythm GI normal to inspection, nondistended, normoactive bowel sounds Extremity no clubbing, cyanosis or edema Skin no rashes or lesions noted Neuro CN's II-XII intact bilaterally, moves all extremities and no focal motor deficits Psych cooperative and affect normal Charges/Coding Visit Charges Inpatient E&M: 12903 Subs Hosp L2
[2021-03-19] MEDS: 0.9% Saline Lock 10 ML Syringe IV (14:27)
--- NOTE | 2021-03-19 15:03 | PCM.PN.HOSP ---
Subjective Subjective Patient was seen and examined. Remains on 10 L of oxygen. Hospice meeting happening at 3 PM. Objective Data Objective Data Vital Signs: Vital Signs Temp Pulse Resp BP Pulse Ox 97.6 F L 78 24 H 136/65 H 96 03/19/21 10:00 03/19/21 10:45 03/19/21 10:45 03/19/21 10:02 03/19/21 10:00 Oxygen Flow Rate (L/min) 13 Oxygen Delivery Method Nasal Cannula Weight: 81.2 kg Body Mass Index (BMI) 30.7 Intake & Output: Intake and Output for Last 24 Hours 03/17/21 03/18/21 03/19/21 23:59 23:59 23:59 Intake Total 560 / 560 480 / 480 375 / 375 Output Total 0 / 0 700 / 950 650 / 650 Balance 560 / 560 -220 / -470 -275 / -275 Lab / Micro Data Result Diagrams: 03/17/21 06:05 03/17/21 06:05 Labs: Laboratory Results - last 24 hr 03/16/21 04:00: MANPREET Screen Negative, VIKRAM-1 Antibody Not Reportable, SS-A/Ro IgG Antibody Not Reportable, SS-B/La IgG Antibody Not Reportable, Sm (Menjivar) Antibody Not Reportable, SUPERVISOR TELEPHONE INFORMATION Antibody Not Reportable, Scl-70 Scleroderma Ab Not Reportable, Double Strand DNA Ab Not Reportable, Centromere B Antibody Not Reportable Micro: Microbiology 03/16/21 05:00 Nasal Secretion SARS-CoV-2 Antigen (Rapid) - Final Physical Exam Narrative Physical exam: General: Alert, Oriented x3, Cooperative, in moderate respiratory distress, on 10 L of oxygen HEENT: Atraumatic Oral: Moist Mucosa Neck: Supple Lungs: Diminished, crackles at the mid-lung and bases Cardiovascular: HS I+II, regular, no murmurs Abdomen: Bowel Sounds Present, Soft, Non Tender Extremities: No edema Assessment & Plan Assessment/Plan (1) Acute and chronic respiratory failure with hypoxia: (2) Pulmonary fibrosis: PLAN: 1. Acute on chronic hypoxic respiratory failure secondary to acute exacerbation of pulmonary fibrosis Patient's respiratory status is remains worse; on 10 L of oxygen He was on 3.5 L at home Hospice consulted; meeting planned for 3 PM Patient wants to be discharged home with hospice ideally Continue breathing treatment, continue IV steroids 2. Acute exacerbation of pulmonary fibrosis, moderate to severe Chest x-ray just shows unchanged fibrotic changes. Patient has been vaccinated Rapid antigen for COVID-19 was negative. Continue on IV steroids, breathing treatments Will check sputum culture Pulmonology following 4. Bladder cancer, follows with oncology Charges/Coding Visit Charges Inpatient E&M: 71225 Subs Hosp L3
--- NOTE | 2021-03-19 15:21 | PCM.DC ---
Discharge Instructions Diet Discharge Diet: No restrictions Activity Discharge Activity: Return to Normal Activity Follow Up Care Test Results: Test results from this visit will be discussed in further detail at your follow-up appointment, if applicable. Discharge Plan Admission Admit Date/Time: 03/16/21 07:44 Primary Reason for Your Visit: Acute exacerbation of pulmonary fibrosis Attending Provider: Nayeli Hoang Primary Care Provider: Merlin Pollack Consulting Providers: Umer Michelle ; Alvarado Wharton ; Nya Singh LOOM CONTROL CHAIN BUILDER ; Bell Jones ; Luis Serrano ; Cherelle Ascencio ; Josefa Godfrey ; Marielena Cunningham ; Mary Magaña LOOM CONTROL CHAIN BUILDER Instructions Additional Instructions / Restrictions: Continue per Hospice recommendations Discharge Orders/Prescriptions Prescriptions: New ipratropium-albuterol 0.5 mg-3 mg(2.5 mg base)/3 mL Solution For Nebulization 3 ml inhalation Q4HWA.RT Qty: 0 RF: 0 prednisone 20 mg tablet 40 mg PO DAILY 30 Days Qty: 60 RF: 0 Continued metoprolol tartrate 25 mg tablet 25 mg PO BID RF: 0 aspirin 81 MG tablet,delayed release (DR/EC) 81 mg PO DAILY RF: 0 omeprazole 20 MG capsule 20 mg PO DAILY RF: 0 docusate sodium 100 mg Capsule 200 mg PO DAILY RF: 0 rosuvastatin 10 mg tablet 10 mg PO QODAY RF: 0 amlodipine 5 mg tablet 5 mg PO DAILY RF: 0 nitroglycerin 0.4 mg tablet, sublingual 0.4 mg SUBLINGUAL PRN PRN (Reason: Chest Pain) RF: 0 Referrals / Follow Up: Merlin Pollack DO [Primary Care Provider] - Disposition Disposition (needs filled in before D/C Order can be placed): Hospice in Home
--- NOTE | 2021-03-19 15:26 | PCM.DC.SUM ---
Providers Date of Admission: 03/16/21 Date of Discharge: 03/19/21 Primary Care Physician: Dr. Merlin Pollack, DO Consultations 03/16/21 12:03 Consult: Hospice / Palliative Care Routine Consulting Provider: [facility] Reason for Consult: pulm fibrosis EMERGENT Consult: No Notified: Yes Date Notified: 03/16/21 Time Notified: 14:00 Method of Notification: telephone Comments:: All paperwork faxed on 03/16/21 Consult: Senior Radiation Protection Technician / Pulmonary Medicine Routine Consulting Provider: Pulmonary Medicine [facility] [place] Reason for Consult: pulm fibrosis EMERGENT Consult: No Notified: Yes Date Notified: 03/16/21 Time Notified: 07:52 Method of Notification: Text Reason For Visit: FIBROSIS EXACERBATION Diagnosis Discharge Diagnosis (1) Acute and chronic respiratory failure with hypoxia: Status: Acute Code(s): J96.21 - Acute and chronic respiratory failure with hypoxia (2) Pulmonary fibrosis: Status: Chronic Code(s): J84.10 - Pulmonary fibrosis, unspecified Medications at Discharge Home Medications aspirin 81 mg PO DAILY 06/06/16 omeprazole 20 mg PO DAILY 06/06/16 metoprolol tartrate 25 mg tablet 25 mg PO BID tab 08/13/20 amlodipine 5 mg PO DAILY 02/19/21 docusate sodium 200 mg PO DAILY 02/19/21 rosuvastatin 10 mg PO QODAY 02/19/21 nitroglycerin 0.4 mg SUBLINGUAL PRN PRN 03/16/21 ipratropium-albuterol 3 ml INHALATION Q4HWA.RT #0 ml 03/19/21 prednisone 40 mg PO DAILY 30 Days #60 tab 03/19/21 Hospital Course Operations None Procedures None Summary of Care Provided Minutes Spent on Discharge: 50 Hospital Course: 80-year-old male with multiple comorbidities who was recently discharged 2 weeks prior to admission with exacerbation of his pulmonary fibrosis. Patient completed his steroid taper on 02/24 7. He started having progressive abdominal pain, nausea and vomiting and progressively short of breath. He is typically on 3.5 L of oxygen at home. He was found to be hypoxic in the 70s. Patient has been vaccinated for acute COVID-19. His rapid Covid antigen was negative in the ED. He was admitted to the PCU and managed as acute exacerbation of pulmonary fibrosis. Pulmonology was consulted. Work-up for interstitial lung disease with MANPREET with CCP antibodies rheumatoid factor and ANCA were ordered. High-resolution CT showed idiopathic pulmonary fibrosis with mosaic attenuation and diffuse cylindrical bronchiectasis. Patient oxygen requirement got worse, he was on 10 L of oxygen at discharge. Family meeting was held, hospice was consulted. Patient went home with 10 L of oxygen with hospice. He was also discharged on 40 mg of prednisone. Physical Exam Narrative See progress note of the day Weight / BMI Weight Weight: 81.2 kg Body Mass Index (BMI) 30.7 ABG / Lab / Microbiology Data Result Diagrams: 03/17/21 06:05 03/17/21 06:05 Laboratory: Laboratory Results - last 24 hr 03/16/21 04:00: MANPREET Screen Negative, VIKRAM-1 Antibody Not Reportable, SS-A/Ro IgG Antibody Not Reportable, SS-B/La IgG Antibody Not Reportable, Sm (Menjivar) Antibody Not Reportable, SEWER PIPE PRESS OPERATOR Antibody Not Reportable, Scl-70 Scleroderma Ab Not Reportable, Double Strand DNA Ab Not Reportable, Centromere B Antibody Not Reportable Microbiology: Microbiology 03/16/21 05:00 Nasal Secretion SARS-CoV-2 Antigen (Rapid) - Final D/C Instructions Discharge Diet: No restrictions Meaningful Use Info Meaningful Use Diagnoses (Choose all that apply): None applicable Discharge Plan Admission Admit Date/Time: 03/16/21 07:44 Primary Reason for Your Visit: Acute exacerbation of pulmonary fibrosis Attending Provider: Nayeli Hoang Primary Care Provider: Merlin Pollack Consulting Providers: Umer Michelle ; Alvarado Wharton ; Nya Singh CUSTOMER COMPLAINT SERVICE SUPERVISOR ; Bell Jones ; Luis Serrano ; Cherelle Ascencio ; Josefa Godfrey ; Marielena Cunningham ; Mary Magaña CUSTOMER COMPLAINT SERVICE SUPERVISOR Instructions Additional Instructions / Restrictions: Patient Problems: Altered Health Status related to Hospitalization Patient Goals: *Optimal Level of Health *Keep Appointments *Medication Compliance *Remain SafeContinue per Hospice recommendations Discharge Orders/Prescriptions Prescriptions: New ipratropium-albuterol 0.5 mg-3 mg(2.5 mg base)/3 mL Solution For Nebulization 3 ml inhalation Q4HWA.RT Qty: 0 RF: 0 prednisone 20 mg tablet 40 mg PO DAILY 30 Days Qty: 60 RF: 0 Continued metoprolol tartrate 25 mg tablet 25 mg PO BID RF: 0 aspirin 81 MG tablet,delayed release (DR/EC) 81 mg PO DAILY RF: 0 omeprazole 20 MG capsule 20 mg PO DAILY RF: 0 docusate sodium 100 mg Capsule 200 mg PO DAILY RF: 0 rosuvastatin 10 mg tablet 10 mg PO QODAY RF: 0 amlodipine 5 mg tablet 5 mg PO DAILY RF: 0 nitroglycerin 0.4 mg tablet, sublingual 0.4 mg SUBLINGUAL PRN PRN (Reason: Chest Pain) RF: 0 Referrals / Follow Up: Merlin Pollack DO [Primary Care Provider] - Disposition Disposition (needs filled in before D/C Order can be placed): Hospice in Home Charges/Coding Visit Charges Inpatient E&M: 71740 Disch Hosp
[2021-03-20 03:07] LABS: Cytoplasmic Ab (C-ANCA) <1:20 titer (Neg:<1:20)
[2021-03-20 08:31] LABS: CCP IgG Antibodies 6 units (0-19); Perinuclear Ab (P-ANCA) <1:20 titer (Neg:<1:20)
== END 2021-03-19 18:39 | disposition hospice, home (50) | DRG 196 ==
LOC: ED 07:21 → PCU 08:03
PROVIDERS: Internal Medicine Critical Care Medicine; Emergency Provider Emergency Medicine; PCP Family Medicine; Visit Provider Internal Medicine
DX: J84.112 Idiopathic pulmonary fibrosis (principal); J96.21 Acute and chronic respiratory failure with hypoxia; I10 Essential (primary) hypertension; E78.5 Hyperlipidemia, unspecified; J47.9 Bronchiectasis, uncomplicated; I25.10 Atherosclerotic heart disease of native coronary artery without angina pectoris; E78.00 Pure hypercholesterolemia, unspecified; G47.30 Sleep apnea, unspecified; C67.9 Malignant neoplasm of bladder, unspecified; Z66 Do not resuscitate; Z95.1 Presence of aortocoronary bypass graft; Z90.3 Acquired absence of stomach [part of]; Z88.1 Allergy status to other antibiotic agents; Z88.0 Allergy status to penicillin; Z87.891 Personal history of nicotine dependence; Z79.82 Long term (current) use of aspirin; Z80.0 Family history of malignant neoplasm of digestive organs; Z82.49 Family history of ischemic heart disease and other diseases of the circulatory system
CPT/HCPCS: 36415; 71045; 71250; 74018; 80048; 80053; 83605; 83880; 84484; 85025; 86038; 86200; 86225; 86235; 86256; 86431; 87426; 93005; 94002; 94003; 94640; 94667; 94668; 94762; 99285; A4216; J1940